=== PATIENT | male | born 1950 | race Caucasian/White ===

== ENCOUNTER 2018-11-14 10:31 | Observation (INO) | payer OTHER, MEDICARE ==
[~2018-11-14] VITALS: Ht 175.3 cm; Wt 89.1 kg
[2018-11-14] MEDS ORDERED: LISI40TA PO (10:49)
[2018-11-14] MEDS ORDERED: METH75TA PO (10:49)
[2018-11-14] MEDS ORDERED: VERA120T2 PO (10:49)
[2018-11-14] MEDS ORDERED: ALLO10TA PO (10:49)
[2018-11-14] MEDS ORDERED: HYDR12.55 PO (10:49)
[2018-11-14] MEDS ORDERED: DIPH25CA PO (10:49)
[2018-11-14] MEDS ORDERED: DOXA2TAB3 PO (10:49)
[2018-11-14] MEDS ORDERED: PANT40TA3 PO (10:49)
[2018-11-14] MEDS ORDERED: CITA10TA5 PO (10:49)
[2018-11-14] MEDS ORDERED: POTA8CAP4 PO (10:49)
[2018-11-14] MEDS ORDERED: ADACEL/BOOSTRIX VACCINE (DIPHTH/PERTUSS/ACELL/TETANUS)0.5ML SYR (90715) IM ONE (11:15)
--- NOTE | 2018-11-14 11:36 | REP ---
CT Head without contrast HISTORY: Injury COMPARISON: None Areas of decreased attenuation are present in the periventricular white matter. This represents small-vessel ischemic disease. There is no intraparenchymal hemorrhage, acute infarct, mass or midline shift. The ventricular system and cortical sulci are dilated consistent with minimal volume loss. There is no extra cerebral collection. There is no fracture. The visualized sinuses are clear. IMPRESSION: 1. Small vessel ischemic disease. 2. Minimal volume loss. Electronically Signed by Sanya Juarez MD 11/14/2018 11:27 A
--- NOTE | 2018-11-14 11:40 | REP ---
CT cervical spine without contrast HISTORY: Injury COMPARISON: None There is no acute fracture or subluxation. Disc bulges are present at the C3-4 through C5-6 levels. A disc bulge with associated osteophyte formation is present at the C6-7 level. There is minimal narrowing of the spinal canal. Uncinate process and/or facet hypertrophy are present at the C3-4 through C7-T1 levels. These findings produce minimal to moderate narrowing of the neural foramina. The C4-5 through C6-7 intervertebral discs are decreased in height consistent with disc degeneration. IMPRESSION: 1. There is no acute fracture or subluxation. 2. There is cervical spondylosis at the C3-4 through C7-T1 levels. Electronically Signed by Sanya Juarez MD 11/14/2018 11:31 A
[2018-11-14 12:00] LABS: BASO % 0.3 % (0.0-1.0); EOS % 0.4 % (0.0-3.0); HEMATOCRIT 37.1 % (42.0-52.0); HEMOGLOBIN 12.6 g/dl (13.5-17.5); LYMPH # 0.8 10^3/uL (1.5-4.5); LYMPH % 11.3 % (24.0-44.0); MEAN CORPUSCULAR HEMOGLOBIN 33.9 pg (27.0-33.0); MEAN CORPUSCULAR VOLUME 99.7 fl (80.0-96.0); MONO # 0.4 10^3/uL (0.0-0.8); MONO % 6.4 % (0.0-5.0); NEUTROPHILS # 5.6 10^3/uL (1.8-7.7); PLATELET COUNT, AUTOMATED 161 10^3/uL (150-450); RED BLOOD COUNT 3.72 10^6/uL (4.30-6.10); WHITE BLOOD COUNT 6.9 10^3/uL (4.0-10.0)
--- NOTE | 2018-11-14 12:04 | REP ---
CHEST, SINGLE VIEW: Single view of the chest is performed. There is no acute infiltrate or pulmonary edema. There is mild left ventricular prominence. The mediastinal silhouette is unremarkable. IMPRESSION: No acute infiltrate. Electronically Signed by Gustavo Turk MD 11/15/2018 11:56 A
[2018-11-14] MEDS ORDERED: ACETAMINOPHEN 325 MG TAB PO ONE (12:15)
--- NOTE | 2018-11-14 12:24 | REP ---
MAXILLOFACIAL CT WITHOUT CONTRAST: HISTORY: Injury. Minimal mucosal thickening is present in the left frontal sinus. The remaining sinuses are clear. The ostiomeatal units are patent. The middle and inferior nasal turbinates are partially paradoxical. There is minimal deviation of the nasal septum to the left. A spur is present arising from the left side of the nasal septum. The cribriform plate, medial valero of the orbits and optic canals are intact. The carotid canals perform a segment of the posterolateral valero of the sphenoid sinus. There is an old fracture of the nasal bone. IMPRESSION: Sinus mucosal thickening as described above. Electronically Signed by Sanya Juarez MD 11/14/2018 12:27 P
[2018-11-14 12:25] LABS: ALBUMIN 3.6 GM/DL (3.2-5.2); ALT/SGPT 43 U/L (12-78); BILIRUBIN,DIRECT 0.1 MG/DL (0.0-0.2); BILIRUBIN,TOTAL 0.4 MG/DL (0.2-1.0); BLOOD UREA NITROGEN 14 MG/DL (7-18); CALCIUM LEVEL 8.9 MG/DL (8.8-10.2); CARBON DIOXIDE LEVEL 26 MEQ/L (21-32); CHLORIDE LEVEL 102 MEQ/L (98-107); CPK CREATINE PHOSPHOKINASE 94 U/L (39-308); CREATININE FOR GFR 0.83 MG/DL (0.70-1.30); GLOMERULAR FILTRATION RATE > 60.0 (>49); GLUCOSE, FASTING 105 MG/DL (70-100); LIPASE 173 U/L (73-393); POTASSIUM SERUM 4.5 MEQ/L (3.5-5.1); SODIUM LEVEL 135 MEQ/L (136-145); TOTAL PROTEIN 7.4 GM/DL (6.4-8.2); TROPONIN I < 0.02 NG/ML (< 0.10)
[2018-11-14] MEDS ORDERED: NS 1,000 ML IV ONE (12:45)
[2018-11-14] MEDS ORDERED: POTA10TA67 PO (13:08)
[2018-11-14] MEDS ORDERED: CITA40TA4 PO (13:08)
[2018-11-14] MEDS ORDERED: VERA240C3 PO (13:08)
[2018-11-14] MEDS ORDERED: DYAZ37.5 PO (13:08)
[2018-11-14] MEDS ORDERED: ZYLO300T6 PO (13:08)
[2018-11-14] MEDS ORDERED: DOXA1TAB42 PO (13:08)
[2018-11-14] MEDS ORDERED: VENTAER INH (13:08)
[2018-11-14] MEDS ORDERED: CRES40TA PO (13:08)
[2018-11-14] MEDS ORDERED: IPRATROPIUM 0.5MG/ALBUTEROL 2.5MG INH SOL UD 3ML (DUONEB)(J7620) NEB PRN (13:45)
[2018-11-14] MEDS: hydrALAZINE INJ 20 MG/ML VIAL IV SCH ×3 (14:19→22:22)
[2018-11-14] MEDS ORDERED: LORazepam 2 MG/ML VIAL (J2060) IV PRN (14:30)
[2018-11-14] MEDS: OXAZEPAM 15 MG CAP PO SCH ×2 (14:58→21:10)
--- NOTE | 2018-11-14 15:18 | ECGEPIP ---
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
[2018-11-14 16:45] VITALS: BP 203/95
[2018-11-14 16:47] VITALS: BP 189/86
[2018-11-14 17:00] VITALS: BP 189/86
[2018-11-14 17:04] VITALS: BP 160/68
[2018-11-14] MEDS: POTASSIUM CHLORIDE 10 MEQ SR TABLET PO SCH ×2 (17:11→21:10)
[2018-11-14] MEDS: LISINOPRIL 40 MG TAB PO SCH ×2 (17:12→21:13)
[2018-11-14] MEDS: ACETAMINOPHEN TAB 650MG DOSE (2X325MG) PO PRN ×2 (17:12→22:22)
--- NOTE | 2018-11-14 17:22 | HPEPDOC ---
General Date of Admission Nov 14, 2018 at 13:39 Date of Service: Nov 14, 2018 Chief Complaint The patient is a 68-year-old male admitted with a reason for visit of Syncope. History of Present Illness 68-year-old male with past medical history of hypertension, GERD, dyslipidemia, gout, and alcohol abuse presented to the ER with a chief complaint of a episode of fall. The patient states that he was walking from his car to the [place] clinic when he fell forward in the office. He states that he felt lightheaded and dizzy and fell forward onto his face and left side. During this time, the patient denies any complaints of chest pain, palpitations, shortness of breath, abdominal pain, nausea/vomiting/diarrhea, or any shaking of the limbs, tongue biting, or loss of consciousness. In the ER, the patient initially denied any history of alcohol abuse. However, the patient's son did call the ER and mention that the patient drinks 18 cans of [place] Light daily. An EKG revealed sinus bradycardia with a heart rate in the 50s- 60s. Imaging did not reveal any acute fractures. The patient will be admitted to the hospitalist service for further evaluation and management. Home Medications Scheduled Allopurinol (Zyloprim) 300 Mg Tablet, 300 MG PO QHS, (Reported) Citalopram Hydrobromide (Citalopram HBr) 40 Mg Tablet, 20 MG PO QHS, (Reported) Doxazosin Mesylate (Doxazosin Mesylate) 1 Mg Tablet, 3 MG PO QHS, (Reported) Lisinopril (Lisinopril) 40 Mg Tablet, 40 MG PO BID, (Reported) Pantoprazole Sodium (Pantoprazole Sodium) 40 Mg Tablet.dr, 40 MG PO QHS, (Reported) Potassium Chloride (Potassium Chloride) 10 Meq Tab.er.prt, 10 MEQ PO TID, (Reported) Rosuvastatin Calcium (Crestor) 40 Mg Tablet, 40 MG PO QHS, (Reported) Triamterene/Hydrochlorothiazid (Dyazide 37.5-25 Capsule) 1 Each Capsule, 1 CAP PO DAILY, (Reported) Verapamil HCl (Verapamil Sr) 240 Mg Cap24h.pel, 240 MG PO QHS, (Reported) Scheduled PRN Albuterol Sulfate (Ventolin Hfa) 18 Gm Hfa.aer.ad, 2 PUFF INH Q4H PRN for SHORTNESS OF BREATH, (Reported) Allergies Coded Allergies: No Known Allergies (Unverified , 11/14/18) Past Medical History Medical History As noted in HPI. Social History * Smoker: current smoker (patient admits to smoking 1 pack per day for the last 45+ years.) Alcohol: other (Patient initially stated that he only drinks 1 beer on occasion. However, the patient's son called the ER and confirmed that he drinks 18 beers of budlight daily after the patient's had ) Drugs: denies Review of Systems Other systems 10 point review of systems negative unless otherwise specified in HPI. Physical Examination General Exam: Positive: Alert, Cooperative, No Acute Distress ENT Exam: Positive: Mucous membr. moist/pink, Other ENT (some bruising noted over the right side of the nasal ridge) Neck Exam: Negative: JVD Chest Exam: Positive: Clear to auscultation, Normal air movement Heart Exam: Positive: Bradycardic Telemetry: Positive: Sinus, Bradycardia Abdomen Exam: Positive: Soft; Negative: Tenderness Extremity Exam: Negative: Tenderness, Swelling Psych Exam: Positive: Oriented x 3 Vital Signs Vital Signs Date Time Temp Pulse Resp B/P (MAP) Pulse Ox O2 Delivery O2 Flow Rate FiO2 11/14/18 17:04 73 160/68 (98) 97 11/14/18 16:47 16 11/14/18 16:45 98.4 11/14/18 16:17 Room Air Laboratory Data Labs 24H Laboratory Tests 2 11/14/18 11:05: Immature Granulocyte % (Auto) 0.6, White Blood Count 6.9, Red Blood Count 3.72L, Hemoglobin 12.6L, Hematocrit 37.1L, Mean Corpuscular Volume 99.7H, Mean Corpuscular Hemoglobin 33.9H, Mean Corpuscular Hemoglobin Concent 34.0, Red Cell Distribution Width 13.8, Platelet Count 161, Neutrophils (%) (Auto) 81.0H, Lymphocytes (%) (Auto) 11.3L, Monocytes (%) (Auto) 6.4H, Eosinophils (%) (Auto) 0.4, Basophils (%) (Auto) 0.3, Neutrophils # (Auto) 5.6, Lymphocytes # (Auto) 0.8L, Monocytes # (Auto) 0.4, Eosinophils # (Auto) 0.0, Basophils # (Auto) 0.0, Nucleated Red Blood Cells % (auto) 0.0, Anion Gap 7L, Glomerular Filtration Rate > 60.0, Calcium Level 8.9, Aspartate Amino Transf (AST/SGOT) 37, Alanine Aminotransferase (ALT/SGPT) 43, Alkaline Phosphatase 116, Total Bilirubin 0.4, Direct Bilirubin 0.1, Total Creatine Kinase 94, Creatine Kinase MB 3.0, Creatine Kinase MB Relative Index 3.40, Troponin I < 0.02, Total Protein 7.4, Albumin 3.6, Albumin/Globulin Ratio 0.95L, Lipase 173 11/14/18 14:31: Ethyl Alcohol Level < 0.003 CBC/BMP Laboratory Tests 11/14/18 11:05 Red Blood Count 3.72 L, Mean Corpuscular Volume 99.7 H, Mean Corpuscular Hemoglobin 33.9 H, Mean Corpuscular Hemoglobin Concent 34.0, Red Cell Distribution Width 13.8, Neutrophils (%) (Auto) 81.0 H, Lymphocytes (%) (Auto) 11.3 L, Monocytes (%) (Auto) 6.4 H, Eosinophils (%) (Auto) 0.4, Basophils (%) (Auto) 0.3, Neutrophils # (Auto) 5.6, Lymphocytes # (Auto) 0.8 L, Monocytes # (Auto) 0.4, Eosinophils # (Auto) 0.0, Basophils # (Auto) 0.0 Plan / VTE VTE Prophylaxis Ordered?: Yes Plan Plan Fall possibly Mechanical from Alcohol Abuse, r/o Cardiac Etiology Imaging with no acute findings EKG noted to be in Sinus Bradycardia, will hold verapamil Orthostatics negative 2D ECHO ordered, Trend Trops We will monitor on Telemetry Accelerated Hypertension Cont Meds as ordered, Hydralazine IV prn ordered for additional control Will hold Doxazosin as this can cause dizziness/lightheadedness and was recently added to the patient's regimen Alcohol Abuse Patient states last drink was yesterday evening, EtOH level within normal limits. Patient noted to be having symptoms of withdrawal in the ER. Will place on CIWA Serax q6h, Ativan prn ordered Gout Cont Allopurinol GERD Cont Protonix Dyslipidemia Cont Statin Anxiety/Depression Cont Celexa DVT Prophylaxis SCDs/BRI Aldana MD Nov 14, 2018 17:22
[2018-11-14 19:22] LABS: CPK CREATINE PHOSPHOKINASE 100 U/L (39-308); TROPONIN I < 0.02 NG/ML (< 0.10)
[2018-11-14 20:00] VITALS: BP_SYST 172; BP_SYST 189; BP_DIAS 6; BP_DIAS 80
[2018-11-14] MEDS: ALLOPURINOL 300 MG TAB PO SCH (21:09)
[2018-11-14] MEDS: PANTOPRAZOLE 40MG TAB (PROTONIX) PO SCH (21:09)
[2018-11-14] MEDS: NICOTINE 7 MG/24 HR TRANSDERMAL TD SCH (21:09)
[2018-11-14] MEDS: CitaloPRAM (CeleXA) 20 MG TAB PO SCH (21:10)
[2018-11-14] MEDS: ROSUVASTATIN 10 MG TAB (CRESTOR) PO SCH (21:10)
[2018-11-15] VITALS (12 sets, daily range): BP systolic 137–178; BP diastolic 60–98
[2018-11-15] MEDS: ACETAMINOPHEN TAB 650MG DOSE (2X325MG) PO PRN ×4 (02:09→22:19)
[2018-11-15] MEDS: hydrALAZINE INJ 20 MG/ML VIAL IV SCH ×2 (02:47→06:09)
[2018-11-15 02:56] LABS: HEMATOCRIT 35.4 % (42.0-52.0); HEMOGLOBIN 11.8 g/dl (13.5-17.5); MEAN CORPUSCULAR HEMOGLOBIN 32.4 pg (27.0-33.0); MEAN CORPUSCULAR HGB CONC 33.3 g/dl (32.0-36.5); MEAN CORPUSCULAR VOLUME 97.3 fl (80.0-96.0); PLATELET COUNT, AUTOMATED 148 10^3/uL (150-450); RED BLOOD COUNT 3.64 10^6/uL (4.30-6.10); WHITE BLOOD COUNT 5.2 10^3/uL (4.0-10.0)
[2018-11-15 03:17] LABS: ALT/SGPT 36 U/L (12-78); BILIRUBIN,TOTAL 0.2 MG/DL (0.2-1.0); BLOOD UREA NITROGEN 11 MG/DL (7-18); CALCIUM LEVEL 8.4 MG/DL (8.8-10.2); CARBON DIOXIDE LEVEL 27 MEQ/L (21-32); CHLORIDE LEVEL 107 MEQ/L (98-107); CPK CREATINE PHOSPHOKINASE 88 U/L (39-308); CREATININE FOR GFR 0.73 MG/DL (0.70-1.30); GLOMERULAR FILTRATION RATE > 60.0 (>49); GLUCOSE, FASTING 94 MG/DL (70-100); MAGNESIUM LEVEL 2.1 MG/DL (1.8-2.4); MB/CK RELATIVE INDEX 3.18 (< OR =4); POTASSIUM SERUM 3.8 MEQ/L (3.5-5.1); SODIUM LEVEL 140 MEQ/L (136-145); TOTAL PROTEIN 7.1 GM/DL (6.4-8.2); TROPONIN I < 0.02 NG/ML (< 0.10)
[2018-11-15] MEDS ORDERED: KETOROLAC 30 MG/ML VIAL (J1885) IV ONE ×2 (04:15→18:30)
[2018-11-15] MEDS: OXAZEPAM 15 MG CAP PO SCH (06:07)
[2018-11-15] MEDS: DYAZIDE 37.5/25 CAP (TRIAM/HCTZ) PO SCH (08:38)
[2018-11-15] MEDS: LISINOPRIL 40 MG TAB PO SCH ×2 (08:38→21:03)
[2018-11-15] MEDS: NICOTINE 7 MG/24 HR TRANSDERMAL TD SCH (08:39)
[2018-11-15] MEDS: POTASSIUM CHLORIDE 10 MEQ SR TABLET PO SCH ×3 (08:39→21:03)
--- NOTE | 2018-11-15 09:51 | IPNPDOC ---
Subjective Date Seen The patient was seen on 11/15/18. Subjective Chief Complaint/HPI Patient seen and examined at the bedside. No acute overnight events noted. Patient denies any more episodes of lightheadedness/dizziness. Objective Physical Examination General Exam: Positive: Alert, Cooperative, No Acute Distress ENT Exam: Positive: Mucous membr. moist/pink, Other ENT (some bruising noted over the right side of the nasal ridge) Neck Exam: Negative: JVD Chest Exam: Positive: Clear to auscultation, Normal air movement Heart Exam: Positive: Rate Normal, Normal S1, Normal S2 Telemetry: Positive: Sinus Abdomen Exam: Positive: Soft; Negative: Tenderness Extremity Exam: Negative: Tenderness, Swelling Psych Exam: Positive: Oriented x 3 Assessment /Plan Plan/VTE VTE Prophylaxis Ordered?: Yes Plan Fall possibly Mechanical from Alcohol Abuse, r/o Cardiac Etiology Imaging with no acute findings Orthostatics negative Trops negative 2D ECHO pending No acute overnight events noted on Telemetry--Will cont to monitor Accelerated Hypertension Cont Meds as ordered, Hydralazine PRN ordered Will hold Doxazosin as this can cause dizziness/lightheadedness and was recently added to the patient's regimen Hx of Alcohol Abuse CIWA protocol ordered Serax q6h prn ordered Gout Cont Allopurinol GERD Cont Protonix Dyslipidemia Cont Statin Anxiety/Depression Cont Celexa DVT Prophylaxis SCDs/TEDs Dispo--pending 2D ECHO, continued clinical improvement. Monitor on Telemetry. D/C in 24hrs pending no acute findings, stabilization of blood pressure. [facility]/I&O Vital Signs Date Time Temp Pulse Resp B/P (MAP) Pulse Ox O2 Delivery O2 Flow Rate FiO2 11/15/18 06:09 188/96 11/15/18 04:00 97.6 88 18 96 11/14/18 16:17 Room Air I&O- Last 24 Hours up to 6 AM 11/15/18 05:59 Intake Total 940 ml Output Total 1950 ml Balance -1010 ml Laboratory Data 24H LABS Laboratory Tests 2 11/14/18 11:05: Immature Granulocyte % (Auto) 0.6, White Blood Count 6.9, Red Blood Count 3.72L, Hemoglobin 12.6L, Hematocrit 37.1L, Mean Corpuscular Volume 99.7H, Mean Corpus cular Hemoglobin 33.9H, Mean Corpuscular Hemoglobin Concent 34.0, Red Cell Distribution Width 13.8, Platelet Count 161, Neutrophils (%) (Auto) 81.0H, Lymphocytes (%) (Auto) 11.3L, Monocytes (%) (Auto) 6.4H, Eosinophils (%) (Auto) 0.4, Basophils (%) (Auto) 0.3, Neutrophils # (Auto) 5.6, Lymphocytes # (Auto) 0.8L, Monocytes # (Auto) 0.4, Eosinophils # (Auto) 0.0, Basophils # (Auto) 0.0, Nucleated Red Blood Cells % (auto) 0.0, Anion Gap 7L, Glomerular Filtration Rate > 60.0, Calcium Level 8.9, Aspartate Amino Transf (AST/SGOT) 37, Alanine Aminotransferase (ALT/SGPT) 43, Alkaline Phosphatase 116, Total Bilirubin 0.4, Direct Bilirubin 0.1, Total Creatine Kinase 94, Creatine Kinase MB 3.0, Creatine Kinase MB Relative Index 3.40, Troponin I < 0.02, Total Protein 7.4, Albumin 3.6, Albumin/Globulin Ratio 0.95L, Lipase 173 11/14/18 14:31: Ethyl Alcohol Level < 0.003 11/14/18 18:53: Total Creatine Kinase 100, Creatine Kinase MB 3.0, Creatine Kinase MB Relative Index 3.40, Troponin I < 0.02 11/15/18 02:49: Nucleated Red Blood Cells % (auto) 0.0, Anion Gap 6L, Glomerular Filtration Rate > 60.0, Calcium Level 8.4L, Aspartate Amino Transf (AST/SGOT) 32, Alanine Aminotransferase (ALT/SGPT) 36, Alkaline Phosphatase 109, Total Bilirubin 0.2, Total Creatine Kinase 88, Creatine Kinase MB 3.0, Creatine Kinase MB Relative Index 3.18, Troponin I < 0.02, Total Protein 7.1, Albumin 3.0L, Albumin/Globulin Ratio 0.73L, Blood Urea Nitrogen 11, Creatinine 0.73, Sodium Level 140, Potassium Level 3.8, Chloride Level 107, Carbon Dioxide Level 27, Magnesium Level 2.1 CBC/BMP Laboratory Tests 11/14/18 11:05 Red Blood Count 3.72 L, Mean Corpuscular Volume 99.7 H, Mean Corpuscular Hemoglobin 33.9 H, Mean Corpuscular Hemoglobin Concent 34.0, Red Cell Distribution Width 13.8, Neutrophils (%) (Auto) 81.0 H, Lymphocytes (%) (Auto) 11.3 L, Monocytes (%) (Auto) 6.4 H, Eosinophils (%) (Auto) 0.4, Basophils (%) (Auto) 0.3, Neutrophils # (Auto) 5.6, Lymphocytes # (Auto) 0.8 L, Monocytes # (Auto) 0.4, Eosinophils # (Auto) 0.0, Basophils # (Auto) 0.0 11/15/18 02:49 Red Blood Count 3.64 L, Mean Corpuscular Volume 97.3 H, Mean Corpuscular Hemoglobin 32.4, Mean Corpuscular Hemoglobin Concent 33.3, Red Cell Distribution Width 13.9, Calcium Level 8.4 L, Aspartate Amino Transf (AST/SGOT) 32, Alanine Aminotransferase (ALT/SGPT) 36, Total Creatine Kinase 88, Alkaline Phosphatase 109, Total Bilirubin 0.2, Total Protein 7.1, Albumin 3.0 L BRI VALLE MD Nov 15, 2018 09:51
[2018-11-15] MEDS ORDERED: OXAZEPAM 15 MG CAP PO PRN (10:00)
[2018-11-15] MEDS: **hydrALAZINE** 10 MG TAB PO SCH ×3 (12:17→23:45)
[2018-11-15] MEDS ORDERED: SLF 3 ML SYR IV PRN (14:45)
[2018-11-15] MEDS ORDERED: VERAPAMIL 120 MG SR TAB PO SCH (21:00)
[2018-11-15] MEDS: PANTOPRAZOLE 40MG TAB (PROTONIX) PO SCH (21:02)
[2018-11-15] MEDS: ROSUVASTATIN 10 MG TAB (CRESTOR) PO SCH (21:03)
[2018-11-15] MEDS: ALLOPURINOL 300 MG TAB PO SCH (21:03)
[2018-11-15] MEDS: CitaloPRAM (CeleXA) 20 MG TAB PO SCH (21:04)
[2018-11-15] MEDS: SLF 3 ML SYR IV SCH (21:06)
--- NOTE | 2018-11-15 23:15 | ECHO ---
DATE OF PROCEDURE: 11/15/2018 AGE: 68 GENDER: Male HEIGHT: 69 inches WEIGHT: 185 pounds BODY SURFACE AREA: 2.0 m2 PATIENT LOCATION: Inpatient, ICU, room 3208 REFERRING PHYSICIAN: Jeramy Kennedy MD INDICATION: Syncope. 2-D MEASUREMENTS: RV: 4.4 cm LV: 4.2 cm Septum: 1.4 cm Posterior wall: 1.4 cm Aortic root: 3.7 cm LA: 4.2 cm LVEF: 85% DOPPLER MEASUREMENTS: AV: 2.7 m/s LVOT: 1.86 m/s LVOT diameter: 2.0 cm Mean AV gradient: 15 mmHg Dimensionless index: 0.65 MV-E: 57, A: 115, EA ratio: 0.5 E prime: 5, A prime: 12, E/E prime ratio: 11.4 PCWP: 12.8 mmHg PV: 1.3 m/s Pulmonary artery acceleration time: 100 ms PASP: 37 mmHg IVC: 1.9 cm COMMENTS Normal sinus rhythm with right bundle branch block. Technically challenging study in light of the patient's body habitus, but diagnostically useful information was still obtained. M-mode and two-dimensional echocardiography was performed with pulsed, continuous wave, color flow and tissue Doppler studies. Moderate concentric left ventricle hypertrophy with hyperkinetic wall motion. Mildly dilated left atrium with impairment of LV diastolic function, left atrial pressure upper limits of normal at this time. Mildly dilated right heart chambers with normal wall motion and Doppler evidence of at least mild pulmonary hypertension. Normal IVC size with slightly reduced respiratory collapse suggestive of a pulmonary arterial pressure upper limits of normal. Moderate aortic valvular sclerosis without stenosis (increased peak systolic velocity or reflection of hyperdynamic flow not LV outflow tract obstruction). Trace aortic insufficiency. Normal aortic root size. Slight thickening of the mitral annulus, but no functional valvular abnormality. Normal appearing tricuspid valve with only trace to mild insufficiency. No apparent intracardiac mass or pericardial effusion.
[2018-11-16 01:00] VITALS: BP 140/76
[2018-11-16 05:58] VITALS: BP 170/98
[2018-11-16] MEDS: **hydrALAZINE** 10 MG TAB PO SCH (05:58)
[2018-11-16] MEDS: SLF 3 ML SYR IV SCH (05:58)
[2018-11-16 06:00] VITALS: BP 170/98
[2018-11-16] MEDS: ACETAMINOPHEN TAB 650MG DOSE (2X325MG) PO PRN (06:35)
[2018-11-16 06:50] VITALS: BP 160/82
[2018-11-16] MEDS: POTASSIUM CHLORIDE 10 MEQ SR TABLET PO SCH (08:21)
[2018-11-16] MEDS: LISINOPRIL 40 MG TAB PO SCH (08:21)
[2018-11-16] MEDS: DYAZIDE 37.5/25 CAP (TRIAM/HCTZ) PO SCH (08:21)
[2018-11-16] MEDS: NICOTINE 7 MG/24 HR TRANSDERMAL TD SCH (08:22)
--- NOTE | 2018-11-21 05:08 | DS.PDOC ---
Discharge Summary General Date of Admission Nov 14, 2018 at 13:39 Date of Discharge 11/16/18 Discharge Summary PROCEDURES PERFORMED DURING STAY: None ADMITTING DIAGNOSES: 1. S/P Fall 2. Syncope 3. ETOH Withdrawal Syndrome 4. Accelerated HTN DISCHARGE DIAGNOSES: Same COMPLICATIONS/CHIEF COMPLAINT: Syncope, Fall HISTORY OF PRESENT ILLNESS: As recorded in HPI " 68-year-old male with past medical history of hypertension, GERD, dyslipidemia, gout, and alcohol abuse presented to the ER with a chief complaint of a episode of fall. The patient states that he was walking from his car to the [place] clinic when he fell forward in the office. He states that he felt lightheaded and dizzy and fell forward onto his face and left side. During this time, the patient denies any complaints of chest pain, palpitations, shortness of breath, abdominal pain, nausea/vomiting/diarrhea, or any shaking of the limbs, tongue biting, or loss of consciousness. In the ER, the patient initially denied any history of alcohol abuse. However, the patient's son did call the ER and mention that the patient drinks 18 cans of [place] Light daily. An EKG revealed sinus bradycardia with a heart rate in the 50s- 60s. Imaging did not reveal any acute fractures. The patient will be admitted to the hospitalist service for further evaluation and management. " HOSPITAL COURSE: pt was admitted to telemetry unit with cont. telemonitoring, no events noted on telemetry. CIWA protocol was initiated in view of heavy ETOH use reported by pt sun. Routine blood w/u and imaging did not reveal any abnormality. 2DECHO completed with unremarkable result except LV diastolic dysfunction. Pt is now clinically optimized to dc home. DISCHARGE MEDICATIONS: Please see below. ALLERGIES: Please see below. PHYSICAL EXAMINATION ON DISCHARGE: VITAL SIGNS: Please see below. General Exam: Positive: Alert, Cooperative, No Acute Distress ENT Exam: Positive: Mucous membr. moist/pink, Other ENT (some bruising noted over the right side of the nasal ridge) Neck Exam: Negative: JVD Chest Exam: Positive: Clear to auscultation, Normal air movement Heart Exam: Positive: Bradycardic Telemetry: Positive: Sinus, Bradycardia Abdomen Exam: Positive: Soft; Negative: Tenderness Extremity Exam: Negative: Tenderness, Swelling Psych Exam: Positive: Oriented x 3 LABORATORY DATA: Please see below. IMAGIN11/14/[address] unremarkable Cervical Spine CT no fracture no subluxation Maxillofacial CT sinus thickenning 11/15/18 2D Echo Result " Normal sinus rhythm with right bundle branch block. Technically challenging study in light of the patient's body habitus, but diagnostically useful information was still obtained. M-mode and two-dimensional echocardiography was performed with pulsed, continuous wave, color flow and tissue Doppler studies. Moderate concentric left ventricle hypertrophy with hyperkinetic wall motion. Mildly dilated left atrium with impairment of LV diastolic function, left atrial pressure upper limits of normal at this time. Mildly dilated right heart chambers with normal wall motion and Doppler evidence of at least mild pulmonary hypertension. Normal IVC size with slightly reduced respiratory collapse suggestive of a pulmonary arterial pressure upper limits of normal. Moderate aortic valvular sclerosis without stenosis (increased peak systolic velocity or reflection of hyperdynamic flow not LV outflow tract obstruction). Trace aortic insufficiency. Normal aortic root size. Slight thickening of the mitral annulus, but no functional valvular abnormality. Normal appearing tricuspid valve with only trace to mild insufficiency. No apparent intracardiac mass or pericardial effusion." PROGNOSIS: Guarded ACTIVITY: As tolerated DIET: 2Gr NA DISCHARGE PLAN: DISPOSITION: Home, Self-Care. ITEMS TO FOLLOWUP ON ON OUTPATIENT: PCP in 2 weeks ETOH Counseling DISCHARGE CONDITION: Stable TIME SPENT ON DISCHARGE: Greater than 20 minutes. Vital Signs/I&Os Vital Signs Date Time Temp Pulse Resp B/P (MAP) Pulse Ox O2 Delivery O2 Flow Rate FiO2 11/16/18 06:50 68 160/82 (108) 11/16/18 06:00 98.9 20 97 Discharge Medications Scheduled Allopurinol (Zyloprim) 300 Mg Tablet, 300 MG PO QHS, (Reported) Citalopram Hydrobromide (Citalopram HBr) 40 Mg Tablet, 20 MG PO QHS, (Reported) Doxazosin Mesylate (Doxazosin Mesylate) 1 Mg Tablet, 3 MG PO QHS, (Reported) Lisinopril (Lisinopril) 40 Mg Tablet, 40 MG PO BID, (Reported) Rosuvastatin Calcium (Crestor) 40 Mg Tablet, 40 MG PO QHS, (Reported) Triamterene/Hydrochlorothiazid (Dyazide 37.5-25 Capsule) 1 Each Capsule, 1 CAP PO DAILY, (Reported) Verapamil HCl (Verapamil Sr) 240 Mg Cap24h.pel, 240 MG PO QHS, (Reported) Scheduled PRN Albuterol Sulfate (Ventolin Hfa) 18 Gm Hfa.aer.ad, 2 PUFF INH Q4H PRN for SHORTNESS OF BREATH, (Reported) Allergies Coded Allergies: No Known Allergies (Unverified , 11/14/18) LUTHER WAN MD Nov 21, 2018 05:08
== END 2018-11-16 11:45 | disposition home or self-care (01) ==
LOC: M ED 10:31 → M ED INP 13:39 → M ICU 16:30 → M MSPAV 11-15 14:57
PROVIDERS: ADMIT Internal Medicine; ATTEND Hospitalist
DX: R55 Syncope and collapse (principal); S00.83XA Contusion of other part of head, initial encounter; W19.XXXA Unspecified fall, initial encounter; Y92.531 Health care provider office as the place of occurrence of the external cause; F10.230 Alcohol dependence with withdrawal, uncomplicated; I11.0 Hypertensive heart disease with heart failure; I50.1 Left ventricular failure, unspecified; R00.1 Bradycardia, unspecified; K21.9 Gastro-esophageal reflux disease without esophagitis; E78.5 Hyperlipidemia, unspecified; M10.9 Gout, unspecified; F41.9 Anxiety disorder, unspecified; F32.9 Major depressive disorder, single episode, unspecified; F17.210 Nicotine dependence, cigarettes, uncomplicated; Z79.899 Other long term (current) drug therapy
CPT/HCPCS: 36415; 70450; 70486; 71045; 72125; 80048; 80053; 80076; 82550; 82553; 83690; 83735; 84484; 85025; 85027; 90471; 90715; 93005; 93041; 93306; 94760; 96374; 96375; 96376; 97161; 99285; G0378; G0480; J1885

== ENCOUNTER → 2021-02-27 | Outpatient (REF) | payer MEDICARE, OTHER ==
[~2021-02-27] MED LIST: ALLO10TA PO; ALLO300T2 PO; AZO-95TA3 PO; BACT800T5 PO; CELE40TA PO; CITA10TA7 PO; CITA40TA7 PO; CRES40TA PO; DIPH25CA32 PO; DOXA1TAB42 PO; DOXA2TAB3 PO; DYAZ37.5 PO; HYDR-3713 PO; HYDR12.55 PO; LISI40TA4 PO; METH-1165 PO; OXYB5TAB10 PO; PANT40TA29 PO; POTA10TA67 PO; POTA8CAP10 PO; PYRI1TAB5 PO; TRIA37.53 PO; VENTAER INH; VERA120T9 PO; VERA240C3 PO; ZYLO100T2 PO; ZYLO300T6 PO
[2021-02-27 13:58] LABS: APPEARANCE, URINE HAZY (CLEAR); BACTERIA, URINE AUTO 1+ (NEGATIVE); BILIRUBIN, URINE AUTO NEGATIVE (NEGATIVE); BLOOD, URINE BLOOD 1+ (NEGATIVE); COLOR, URINE YELLOW (YELLOW); GLUCOSE, URINE (UA) AUTO NEGATIVE (NEGATIVE); KETONE, URINE AUTO NEGATIVE (NEGATIVE); LEUKOCYTE ESTERASE, URINE AUTO NEGATIVE (NEGATIVE); MUCUS, URINE SMALL (NEGATIVE); NITRITE, URINE AUTO NEGATIVE (NEGATIVE); PROTEIN, URINE AUTO 2+ mg/dL (NEGATIVE); RBC, URINE AUTO 35 /HPF (0-3); SPECIFIC GRAVITY URINE AUTO 1.015 (1.002-1.035); SQUAMOUS EPITHELIAL CELL UR AU 0 /HPF (0-6); WBC, URINE AUTO 8 /HPF (0-3)
== END ==
LOC: M SMT 13:24
PROVIDERS: ATTEND Urology
DX: R31.21 Asymptomatic microscopic hematuria (principal)

== ENCOUNTER → 2021-03-11 | Outpatient (CLI) | payer OTHER ==
[~2021-03-11] MED LIST changes: -ALLO300T2 PO; -AZO-95TA3 PO; -BACT800T5 PO; -CELE40TA PO; +CITA10TA5 PO; -CITA10TA7 PO; +CITA40TA4 PO; -CITA40TA7 PO; -HYDR-3713 PO; -OXYB5TAB10 PO; -PYRI1TAB5 PO; -TRIA37.53 PO; -ZYLO100T2 PO
[2021-03-11 15:49] LABS: ALBUMIN 3.5 GM/DL (3.2-5.2); ALT/SGPT 39 U/L (12-78); BILIRUBIN,TOTAL 0.5 MG/DL (0.2-1.0); BLOOD UREA NITROGEN 14 MG/DL (7-18); CARBON DIOXIDE LEVEL 29 MEQ/L (21-32); CHLORIDE LEVEL 99 MEQ/L (98-107); CREATININE FOR GFR 1.21 MG/DL (0.70-1.30); GLOMERULAR FILTRATION RATE > 60.0 (>42); GLUCOSE, FASTING 109 MG/DL (70-100); POTASSIUM SERUM 4.5 MEQ/L (3.5-5.1); SODIUM LEVEL 138 MEQ/L (136-145); TOTAL PROTEIN 7.3 GM/DL (6.4-8.2)
== END ==
LOC: M PLALAB 13:23
PROVIDERS: ATTEND Urology
DX: R31.21 Asymptomatic microscopic hematuria (principal)

== ENCOUNTER → 2021-03-12 | Outpatient (CLI) | payer OTHER ==
[~2021-03-12] MED LIST changes: +ISOVUE-370 76% 100ML VIAL As Ordered ONE
--- NOTE | 2021-03-13 08:53 | REP ---
INDICATION: MICRO HEMATURIA. COMPARISON: None TECHNIQUE: Axial precontrast, contrast-enhanced and delayed images from the lung bases to the pubic symphysis using 100 cc Isovue 370 intravenous contrast material. Coronal and sagittal reformations obtained. This CT examination was performed using the following dose reduction techniques: Automated exposure control, adjustment of mA and/or kv according to the patient's size, and the use of iterative reconstruction technique. FINDINGS: The kidneys demonstrate relatively symmetric and chronic appearing perinephric stranding along with few predominantly subcentimeter bilateral hypodensities consistent with complex cysts (largest cyst noted along the anterior margin of the left kidney and measures 1.5 cm diameter). No evidence for nephrolithiasis, hydroureteronephrosis or obstructing ureteral calculi. Along the posterior base of the bladder there is a nodular soft tissue irregularity most pronounced adjacent to the right trigone which focally measures 1.4 cm diameter and is suspicious for bladder mass versus irregular prostate. The liver is enlarged and demonstrates a subtle nodular contour along with subtle mesenteric stranding in the right upper quadrant/franky hepatis with few moderately prominent associated lymph nodes and evidence for recanalized umbilical vein most consistent with underlying cirrhosis. No focal hepatic lesion identified. Splenic calcifications suggest prior granulomatous disease. Pancreas, gallbladder, and bilateral adrenal glands are normal. The enteric system is without evidence for obstruction or acute inflammatory process. No free air or free fluid. Normal terminal ileum and appendix are identified in the right lower quadrant. Pelvis demonstrates bladder as described above along with nonspecific appearance of the prostate gland. No ascites. No free air. No retroperitoneal adenopathy. Abdominal aorta and vasculature appear normal. Musculoskeletal structures are intact and without acute osseous abnormality. IMPRESSION: 1. Irregular somewhat nodular soft tissue along the posterior bladder with a focal 1.4 nodular component along the right trigone warrants urological investigation. Kidneys demonstrate chronic appearing changes and few small complex cysts. 2. Findings suggesting cirrhosis with hepatomegaly and right upper quadrant/franky hepatis lymph nodes. <Electronically signed by Ray Andino > 03/13/21 [id number]
== END ==
LOC: M RAD 13:42
PROVIDERS: ATTEND Urology
DX: R31.1 Benign essential microscopic hematuria (principal)
CPT/HCPCS: 74178; Q9967

== ENCOUNTER → 2021-06-18 | Outpatient (CLI) | payer OTHER ==
[~2021-06-18] MED LIST changes: +HYDR-3713 PO; -ISOVUE-370 76% 100ML VIAL As Ordered ONE; +TRIA37.53 PO; +ZYLO100T2 PO
== END ==
LOC: M LABSMTC 11:20
PROVIDERS: ATTEND Anesthesiology
DX: Z20.822 Contact with and (suspected) exposure to COVID-19 (principal)

== ENCOUNTER → 2021-07-02 | Outpatient (CLI) | payer OTHER ==
[~2021-07-02] MED LIST changes: -CITA10TA5 PO; +CITA10TA7 PO; -CITA40TA4 PO; +CITA40TA7 PO
== END ==
LOC: M LABSMTC 09:08
PROVIDERS: ATTEND Anesthesiology
DX: Z01.812 Encounter for preprocedural laboratory examination (principal); Z20.822 Contact with and (suspected) exposure to COVID-19

== ENCOUNTER 2021-07-07 07:49 | Day surgery (SDC) | payer OTHER ==
[~2021-07-07] VITALS: Ht 176.5 cm; Wt 88.9 kg
[~2021-07-07 07:49] MED LIST changes: +CIPROFLOXACIN 400 MG in IV 1 EA IV ONE; +LIDOCAINE 1% MDV 20ML VIAL SQ PRN; +LR 1,000 ML IV ONE
[2021-07-07] MEDS ORDERED: hydrALAZINE 20MG/ML 1ML VIAL (J0360 PER 20MG) As Ordered ONE ×2 (08:41→09:58)
[2021-07-07] MEDS: MIDAZOLAM INJ 2MG/2ML VIAL (J2250 PER 1MG) IV PRN ×2 (08:53→09:13)
[2021-07-07] MEDS ORDERED: MIDAZOLAM INJ 2MG/2ML VIAL (J2250 PER 1MG) As Ordered ONE (09:11)
[2021-07-07] MEDS ORDERED: fentaNYL 100 MCG/2 ML INJECTION (J3010) As Ordered ONE (09:20)
[2021-07-07] MEDS ORDERED: SUGAMMADEX SODIUM 500 MG/5 ML VIAL (BRIDION) As Ordered ONE (09:50)
[2021-07-07] MEDS ORDERED: ACETAMINOPHEN 1000MG 100ML IV BTL (OFIRMEV) (J0131 PER 10MG) As Ordered ONE (09:50)
[2021-07-07] MEDS ORDERED: ONDANSETRON 4MG/2ML VIAL As Ordered ONE (09:58)
[2021-07-07] MEDS ORDERED: LIDOCAINE 2% 100MG/5ML SDV (FOR ANES.) As Ordered ONE (09:58)
[2021-07-07] MEDS ORDERED: ROCURONIUM BROMIDE 50 MG/5 ML VIAL As Ordered ONE (09:58)
[2021-07-07] MEDS ORDERED: dexameTHASONE 4 MG/ML 1ML VIAL (J1100 PER 1MG) As Ordered ONE (09:58)
[2021-07-07] MEDS ORDERED: propofoL 200 MG/20 ML VIAL As Ordered ONE (09:58)
[2021-07-07] MEDS ORDERED: PYRI1TAB5 PO (10:25)
[2021-07-07] MEDS ORDERED: BACT800T5 PO ×2 (10:25→14:07)
[2021-07-07] MEDS ORDERED: HYDR-3713 PO ×2 (10:25→14:07)
[2021-07-07] MEDS ORDERED: OXYB5TAB10 PO (10:25)
[2021-07-07] MEDS ORDERED: oxyCODONE 5MG TAB PO PRN (10:40)
[2021-07-07] MEDS ORDERED: fentaNYL 100 MCG/2 ML INJECTION (J3010) IV PRN (10:40)
[2021-07-07] MEDS ORDERED: LR 1,000 ML IV SCH ×2 (10:40→10:45)
[2021-07-07] MEDS ORDERED: ONDANSETRON 4MG/2ML VIAL IV PRN (10:40)
[2021-07-07] MEDS ORDERED: HYDROMORPHONE HCL 0.5 MG/ 0.5 ML SYRINGE (J1170 PER 1) IV PRN (10:40)
[2021-07-07 11:35] VITALS: BP 110/62
== END 2021-07-07 11:40 | disposition home or self-care (01) ==
LOC: M SDC 07:49
PROVIDERS: ATTEND Urology
DX: C67.9 Malignant neoplasm of bladder, unspecified (principal); I10 Essential (primary) hypertension; I25.10 Atherosclerotic heart disease of native coronary artery without angina pectoris; F17.200 Nicotine dependence, unspecified, uncomplicated; D64.9 Anemia, unspecified; Z79.899 Other long term (current) drug therapy
CPT/HCPCS: 52240; 52332; 88305; C1769; C2617; J0131; J0360; J0744; J1100; J2250; J2405; J3010

== ENCOUNTER 2021-07-14 16:22 | Inpatient (IN) | payer OTHER ==
[~2021-07-14] VITALS: Ht 175.3 cm; Wt 88.9 kg
[~2021-07-14 16:22] MED LIST changes: -ALLO300T2 PO; -AZO-95TA3 PO; -CELE40TA PO
[2021-07-14] MEDS ORDERED: LIDOCAINE 2% 5ML JELLY UROJET TOP ONE (17:15)
[2021-07-14 18:00] LABS: INR 1.05; PROTHROMBIN TIME 14.1 SECONDS (12.7-14.5)
[2021-07-14] MEDS ORDERED: CELE40TA PO (18:04)
[2021-07-14] MEDS ORDERED: AZO-95TA3 PO (18:04)
[2021-07-14] MEDS ORDERED: OXYB5TAB10 PO (18:04)
[2021-07-14] MEDS ORDERED: ALLO300T2 PO (18:04)
[2021-07-14] MEDS ORDERED: BACT800T5 PO (18:04)
[2021-07-14] MEDS ORDERED: HOME MED LIST COMPLETE! XX SCH (18:05)
[2021-07-14] MEDS ORDERED: ALBUTEROL 90 MCG/ACT 8GM HFA INHALER INH PRN (18:25)
[2021-07-14] MEDS ORDERED: oxyBUTYnin 5 MG TAB PO PRN (18:25)
[2021-07-14] MEDS ORDERED: LORazepam 2 MG TAB PO PRN (18:30)
[2021-07-14] MEDS: NS 1,000 ML IV SCH (18:45)
[2021-07-14 19:15] LABS: BILIRUBIN, URINE MANUAL OBSCURED (NEGATIVE); GLUCOSE, URINE (UA) MANUAL NEGATIVE (NEGATIVE); KETONE, URINE MANUAL NEGATIVE (NEGATIVE); UROBILINOGEN, URINE MANUAL OBSCURED mg/dl (NORMAL)
[2021-07-14 19:17] LABS: RSV AMPLIFICATION NEGATIVE (NEGATIVE)
[2021-07-14 19:24] LABS: RBC, URINE TNTC /hpf (0-3); SQUAMOUS EPITHELIAL CELL URINE NONE SEEN /hpf (SMALL AMT)
[2021-07-14 19:25] LABS: BACTERIA, URINE NONE SEEN; HYALINE CAST, URINE NONE SEEN /lpf (0-1)
[2021-07-14 21:09] VITALS: BP 182/88
[2021-07-14] MEDS: THIAMINE 100 MG TAB PO SCH (22:19)
[2021-07-14] MEDS: CitaloPRAM (CeleXA) 20 MG TAB PO SCH (22:19)
[2021-07-14] MEDS: ROSUVASTATIN 10 MG TAB (CRESTOR) PO SCH (22:19)
[2021-07-14 22:39] VITALS: BP 164/88
[2021-07-14 23:09] VITALS: BP 182/88
[2021-07-14] MEDS: NORCO, ANEXSIA 5/325MG TABLET (HYDROcodone/ACETAMINOPHEN) PO PRN (23:09)
[2021-07-14 23:24] VITALS: BP 177/88
[2021-07-15] VITALS (12 sets, daily range): BP systolic 147–176; BP diastolic 73–90
[2021-07-15] MEDS: DOXAZOSIN MESYLATE 1 MG TAB PO SCH ×2 (01:48→20:47)
[2021-07-15] MEDS: VERAPAMIL 120MG SR TAB PO SCH ×2 (01:49→20:48)
[2021-07-15] MEDS: NS 1,000 ML IV SCH ×3 (04:25→20:48)
[2021-07-15 06:56] LABS: HEMATOCRIT 28.5 % (42.0-52.0); HEMOGLOBIN 9.4 g/dl (13.5-17.5); MEAN CORPUSCULAR HEMOGLOBIN 30.5 pg (27.0-33.0); MEAN CORPUSCULAR VOLUME 92.5 fl (80.0-96.0); PLATELET COUNT, AUTOMATED 207 10^3/uL (150-450); RED BLOOD COUNT 3.08 10^6/uL (4.30-6.10); WHITE BLOOD COUNT 7.9 10^3/uL (4.0-10.0)
[2021-07-15 07:39] LABS: ALBUMIN 2.8 GM/DL (3.2-5.2); BILIRUBIN,TOTAL 0.6 MG/DL (0.2-1.0); CALCIUM LEVEL 8.9 MG/DL (8.8-10.2); CREATININE FOR GFR 1.27 MG/DL (0.70-1.30); GLOMERULAR FILTRATION RATE 59.3 (>42); POTASSIUM SERUM 4.3 MEQ/L (3.5-5.1); TOTAL PROTEIN 6.6 GM/DL (6.4-8.2)
[2021-07-15] MEDS: FOLIC ACID 1 MG TAB PO SCH (09:05)
[2021-07-15] MEDS: MULTIVITAMINS/MINERALS THERAP 1 TAB PO SCH (09:05)
[2021-07-15] MEDS: THIAMINE 100 MG TAB PO SCH ×2 (09:05→20:48)
[2021-07-15] MEDS: NORCO, ANEXSIA 5/325MG TABLET (HYDROcodone/ACETAMINOPHEN) PO PRN ×2 (09:08→20:47)
[2021-07-15] MEDS: ROSUVASTATIN 10 MG TAB (CRESTOR) PO SCH (20:46)
[2021-07-15] MEDS: CitaloPRAM (CeleXA) 20 MG TAB PO SCH (20:48)
[2021-07-16] MEDS: NS 1,000 ML IV SCH ×2 (02:54→12:09)
[2021-07-16 06:00] VITALS: BP 130/70
[2021-07-16 06:10] LABS: HEMATOCRIT 28.8 % (42.0-52.0); HEMOGLOBIN 9.3 g/dl (13.5-17.5); MEAN CORPUSCULAR HEMOGLOBIN 30.7 pg (27.0-33.0); MEAN CORPUSCULAR HGB CONC 32.3 g/dl (32.0-36.5); PLATELET COUNT, AUTOMATED 199 10^3/uL (150-450); RED BLOOD COUNT 3.03 10^6/uL (4.30-6.10); WHITE BLOOD COUNT 8.8 10^3/uL (4.0-10.0)
[2021-07-16 06:29] LABS: ALBUMIN 2.8 GM/DL (3.2-5.2); ALT/SGPT 29 U/L (12-78); BILIRUBIN,TOTAL 0.3 MG/DL (0.2-1.0); BLOOD UREA NITROGEN 17 MG/DL (7-18); CALCIUM LEVEL 8.5 MG/DL (8.8-10.2); CARBON DIOXIDE LEVEL 26 MEQ/L (21-32); CHLORIDE LEVEL 107 MEQ/L (98-107); CREATININE FOR GFR 1.01 MG/DL (0.70-1.30); GLOMERULAR FILTRATION RATE > 60.0 (>42); GLUCOSE, FASTING 100 MG/DL (70-100); POTASSIUM SERUM 4.4 MEQ/L (3.5-5.1); SODIUM LEVEL 137 MEQ/L (136-145); TOTAL PROTEIN 6.5 GM/DL (6.4-8.2)
[2021-07-16] MEDS: THIAMINE 100 MG TAB PO SCH ×2 (08:36→21:13)
[2021-07-16] MEDS: FOLIC ACID 1 MG TAB PO SCH (08:36)
[2021-07-16] MEDS: MULTIVITAMINS/MINERALS THERAP 1 TAB PO SCH (08:37)
[2021-07-16] MEDS: NORCO, ANEXSIA 5/325MG TABLET (HYDROcodone/ACETAMINOPHEN) PO PRN ×2 (09:18→21:13)
[2021-07-16 14:00] VITALS: BP 147/88
[2021-07-16] MEDS: CitaloPRAM (CeleXA) 20 MG TAB PO SCH (21:13)
[2021-07-16] MEDS: ROSUVASTATIN 10 MG TAB (CRESTOR) PO SCH (21:13)
[2021-07-16 21:16] VITALS: BP 211/109
[2021-07-16] MEDS: DOXAZOSIN MESYLATE 1 MG TAB PO SCH (21:16)
[2021-07-16] MEDS: VERAPAMIL 120MG SR TAB PO SCH (21:16)
[2021-07-16 21:29] VITALS: BP 211/109
[2021-07-16] MEDS ORDERED: ACETAMINOPHEN TAB 650MG DOSE (2X325MG) PO PRN (22:00)
[2021-07-17] MEDS: NORCO, ANEXSIA 5/325MG TABLET (HYDROcodone/ACETAMINOPHEN) PO PRN (02:27)
[2021-07-17 02:28] VITALS: BP 160/77
[2021-07-17 03:05] VITALS: BP 211/109
[2021-07-17 06:00] VITALS: BP 197/83
[2021-07-17] MEDS: MULTIVITAMINS/MINERALS THERAP 1 TAB PO SCH (08:13)
[2021-07-17] MEDS: THIAMINE 100 MG TAB PO SCH (08:13)
[2021-07-17] MEDS: FOLIC ACID 1 MG TAB PO SCH (08:13)
[2021-07-17] MEDS ORDERED: lisinopriL 40 MG TAB PO SCH (09:00)
[2021-07-17] MEDS ORDERED: DYAZIDE 37.5/25 CAP (TRIAM/HCTZ) PO SCH (09:00)
[2021-07-17 09:12] LABS: HEMATOCRIT 29.9 % (42.0-52.0); HEMOGLOBIN 9.9 g/dl (13.5-17.5); MEAN CORPUSCULAR HEMOGLOBIN 31.1 pg (27.0-33.0); MEAN CORPUSCULAR HGB CONC 33.1 g/dl (32.0-36.5); PLATELET COUNT, AUTOMATED 197 10^3/uL (150-450); RED BLOOD COUNT 3.18 10^6/uL (4.30-6.10); WHITE BLOOD COUNT 10.3 10^3/uL (4.0-10.0)
[2021-07-17 09:36] LABS: BLOOD UREA NITROGEN 9 MG/DL (7-18); CALCIUM LEVEL 8.6 MG/DL (8.8-10.2); CARBON DIOXIDE LEVEL 28 MEQ/L (21-32); CHLORIDE LEVEL 102 MEQ/L (98-107); CREATININE FOR GFR 0.83 MG/DL (0.70-1.30); GLOMERULAR FILTRATION RATE > 60.0 (>42); GLUCOSE, FASTING 105 MG/DL (70-100); POTASSIUM SERUM 4.4 MEQ/L (3.5-5.1); SODIUM LEVEL 135 MEQ/L (136-145)
[2021-07-17 10:02] VITALS: BP 192/80
[2021-07-17 14:00] VITALS: BP 190/91
[2021-07-17 14:56] VITALS: BP 178/78
== END 2021-07-17 16:41 | disposition home or self-care (01) | DRG 920 ==
LOC: M ED 16:22 → M ED INP 18:24 → M MS5PR 21:20
PROVIDERS: ADMIT Internal Medicine; ATTEND Internal Medicine
PROC: 30233N1 Transfusion of Nonautologous Red Blood Cells into Peripheral Vein, Percutaneous Approach (ICD-10-PCS; principal; 2021-07-14)
DX: N99.820 Postprocedural hemorrhage of a genitourinary system organ or structure following a genitourinary system procedure (principal); N17.9 Acute kidney failure, unspecified; D62 Acute posthemorrhagic anemia; N40.1 Benign prostatic hyperplasia with lower urinary tract symptoms; I10 Essential (primary) hypertension; R33.9 Retention of urine, unspecified; M10.9 Gout, unspecified; K21.9 Gastro-esophageal reflux disease without esophagitis; F32.A Depression, unspecified; E78.5 Hyperlipidemia, unspecified; R31.9 Hematuria, unspecified; F17.200 Nicotine dependence, unspecified, uncomplicated; E87.6 Hypokalemia; C67.2 Malignant neoplasm of lateral wall of bladder; Z90.2 Acquired absence of lung [part of]; Z79.899 Other long term (current) drug therapy

== ENCOUNTER → 2021-07-14 | Outpatient (CLI) | payer OTHER ==
[~2021-07-14] MED LIST changes: +ALLO300T2 PO; +AZO-95TA3 PO; +BACT800T5 PO; +CELE40TA PO; -CIPROFLOXACIN 400 MG in IV 1 EA IV ONE; -LIDOCAINE 1% MDV 20ML VIAL SQ PRN; -LR 1,000 ML IV ONE; +OXYB5TAB10 PO; +PYRI1TAB5 PO
[2021-07-14 11:01] LABS: BASO % 0.2 % (0.0-1.0); EOS # 0.1 10^3/uL (0.0-0.5); EOS % 0.7 % (0.0-3.0); HEMATOCRIT 22.7 % (42.0-52.0); HEMOGLOBIN 7.3 g/dl (13.5-17.5); LYMPH # 1.1 10^3/uL (1.5-5.0); LYMPH % 10.2 % (24.0-44.0); MEAN CORPUSCULAR HEMOGLOBIN 30.9 pg (27.0-33.0); MEAN CORPUSCULAR HGB CONC 32.2 g/dl (32.0-36.5); MEAN CORPUSCULAR VOLUME 96.2 fl (80.0-96.0); MONO % 9.1 % (2.0-8.0); NEUTROPHILS # 8.4 10^3/uL (1.5-8.5); NEUTROPHILS % 78.8 % (36.0-66.0); PLATELET COUNT, AUTOMATED 222 10^3/uL (150-450); RED BLOOD COUNT 2.36 10^6/uL (4.30-6.10); WHITE BLOOD COUNT 10.7 10^3/uL (4.0-10.0)
[2021-07-14 11:30] LABS: ALBUMIN 3.2 GM/DL (3.2-5.2); BILIRUBIN,TOTAL 0.3 MG/DL (0.2-1.0); CALCIUM LEVEL 9.2 MG/DL (8.8-10.2); CREATININE FOR GFR 1.89 MG/DL (0.70-1.30); GLOMERULAR FILTRATION RATE 37.5 (>42); POTASSIUM SERUM 5.1 MEQ/L (3.5-5.1); TOTAL PROTEIN 6.6 GM/DL (6.4-8.2)
== END ==
LOC: M PLALAB 09:43
PROVIDERS: ATTEND Physician Assistant
DX: C67.2 Malignant neoplasm of lateral wall of bladder (principal); Z79.899 Other long term (current) drug therapy

== ENCOUNTER → 2021-09-01 | Outpatient (CLI) | payer OTHER ==
[~2021-09-01] MED LIST changes: +ALLO300T2 PO; +AZO-95TA3 PO; +CELE40TA PO
[2021-09-01 15:13] LABS: BASO # 0.1 10^3/uL (0.0-0.2); BASO % 0.7 % (0.0-1.0); EOS # 0.1 10^3/uL (0.0-0.5); EOS % 1.3 % (0.0-3.0); HEMATOCRIT 32.5 % (42.0-52.0); HEMOGLOBIN 10.4 g/dl (13.5-17.5); LYMPH # 1.3 10^3/uL (1.5-5.0); LYMPH % 14.4 % (24.0-44.0); MEAN CORPUSCULAR HEMOGLOBIN 29.6 pg (27.0-33.0); MEAN CORPUSCULAR VOLUME 92.6 fl (80.0-96.0); MONO # 0.5 10^3/uL (0.0-0.8); MONO % 5.2 % (2.0-8.0); NEUTROPHILS # 6.8 10^3/uL (1.5-8.5); NEUTROPHILS % 77.7 % (36.0-66.0); PLATELET COUNT, AUTOMATED 167 10^3/uL (150-450); RED BLOOD COUNT 3.51 10^6/uL (4.30-6.10); WHITE BLOOD COUNT 8.8 10^3/uL (4.0-10.0)
[2021-09-01 15:13] LABS: APPEARANCE, URINE HAZY (CLEAR); BACTERIA, URINE AUTO 1+ (NEGATIVE); BILIRUBIN, URINE AUTO NEGATIVE (NEGATIVE); BLOOD, URINE BLOOD NEGATIVE (NEGATIVE); COLOR, URINE YELLOW (YELLOW); GLUCOSE, URINE (UA) AUTO NEGATIVE (NEGATIVE); KETONE, URINE AUTO NEGATIVE (NEGATIVE); LEUKOCYTE ESTERASE, URINE AUTO 1+ (NEGATIVE); NITRITE, URINE AUTO NEGATIVE (NEGATIVE); PROTEIN, URINE AUTO 1+ mg/dL (NEGATIVE); RBC, URINE AUTO 0 /HPF (0-3); SPECIFIC GRAVITY URINE AUTO 1.013 (1.002-1.035); SQUAMOUS EPITHELIAL CELL UR AU 0 /HPF (0-6); UROBILINOGEN, URINE AUTO 0.2 mg/dL (0.0-2.0); WBC, URINE AUTO 25 /HPF (0-3)
[2021-09-01 15:24] LABS: ALBUMIN 3.4 GM/DL (3.2-5.2); BILIRUBIN,TOTAL 0.3 MG/DL (0.2-1.0); CALCIUM LEVEL 9.2 MG/DL (8.8-10.2); CREATININE FOR GFR 1.42 MG/DL (0.70-1.30); GLOMERULAR FILTRATION RATE 52.2 (>42); POTASSIUM SERUM 4.9 MEQ/L (3.5-5.1); TOTAL PROTEIN 7.1 GM/DL (6.4-8.2)
== END ==
LOC: M PLALAB 13:41
PROVIDERS: ATTEND Physician Assistant
DX: C67.2 Malignant neoplasm of lateral wall of bladder (principal)

== ENCOUNTER → 2021-09-15 | Outpatient (REF) | payer OTHER ==
[2021-09-15 13:42] LABS: APPEARANCE, URINE HAZY (CLEAR); BACTERIA, URINE AUTO NEGATIVE (NEGATIVE); BILIRUBIN, URINE AUTO NEGATIVE (NEGATIVE); BLOOD, URINE BLOOD NEGATIVE (NEGATIVE); COLOR, URINE YELLOW (YELLOW); GLUCOSE, URINE (UA) AUTO NEGATIVE (NEGATIVE); KETONE, URINE AUTO TRACE mg/dL (NEGATIVE); LEUKOCYTE ESTERASE, URINE AUTO 1+ (NEGATIVE); NITRITE, URINE AUTO NEGATIVE (NEGATIVE); PROTEIN, URINE AUTO 2+ mg/dL (NEGATIVE); RBC, URINE AUTO 1 /HPF (0-3); SPECIFIC GRAVITY URINE AUTO 1.013 (1.002-1.035); SQUAMOUS EPITHELIAL CELL UR AU 0 /HPF (0-6); WBC, URINE AUTO 32 /HPF (0-3)
== END ==
LOC: M SMT 12:44
PROVIDERS: ATTEND Urology
DX: C67.2 Malignant neoplasm of lateral wall of bladder (principal)

== ENCOUNTER → 2021-09-29 | Outpatient (REF) | payer OTHER ==
[2021-09-29 17:57] LABS: APPEARANCE, URINE HAZY (CLEAR); BACTERIA, URINE AUTO NEGATIVE (NEGATIVE); BILIRUBIN, URINE AUTO NEGATIVE (NEGATIVE); BLOOD, URINE BLOOD NEGATIVE (NEGATIVE); COLOR, URINE YELLOW (YELLOW); GLUCOSE, URINE (UA) AUTO NEGATIVE (NEGATIVE); KETONE, URINE AUTO NEGATIVE (NEGATIVE); LEUKOCYTE ESTERASE, URINE AUTO TRACE (NEGATIVE); NITRITE, URINE AUTO NEGATIVE (NEGATIVE); PROTEIN, URINE AUTO 2+ mg/dL (NEGATIVE); RBC, URINE AUTO 1 /HPF (0-3); SPECIFIC GRAVITY URINE AUTO 1.014 (1.002-1.035); SQUAMOUS EPITHELIAL CELL UR AU 0 /HPF (0-6); WBC, URINE AUTO 14 /HPF (0-3)
== END ==
LOC: M SMT 16:50
PROVIDERS: ATTEND Urology
DX: C67.2 Malignant neoplasm of lateral wall of bladder (principal)

== ENCOUNTER → 2021-10-06 | Outpatient (REF) | payer OTHER ==
[2021-10-06 17:39] LABS: APPEARANCE, URINE HAZY (CLEAR); BACTERIA, URINE AUTO NEGATIVE (NEGATIVE); BILIRUBIN, URINE AUTO NEGATIVE (NEGATIVE); BLOOD, URINE BLOOD NEGATIVE (NEGATIVE); COLOR, URINE YELLOW (YELLOW); GLUCOSE, URINE (UA) AUTO NEGATIVE (NEGATIVE); KETONE, URINE AUTO NEGATIVE (NEGATIVE); LEUKOCYTE ESTERASE, URINE AUTO 1+ (NEGATIVE); NITRITE, URINE AUTO NEGATIVE (NEGATIVE); PROTEIN, URINE AUTO 2+ mg/dL (NEGATIVE); RBC, URINE AUTO 1 /HPF (0-3); SPECIFIC GRAVITY URINE AUTO 1.015 (1.002-1.035); SQUAMOUS EPITHELIAL CELL UR AU 0 /HPF (0-6); WBC, URINE AUTO 21 /HPF (0-3)
== END ==
LOC: M SMT 16:38
PROVIDERS: ATTEND Urology
DX: C67.2 Malignant neoplasm of lateral wall of bladder (principal)

== ENCOUNTER → 2021-10-13 | Outpatient (REF) | payer OTHER ==
[2021-10-13 17:34] LABS: APPEARANCE, URINE HAZY (CLEAR); BACTERIA, URINE AUTO NEGATIVE (NEGATIVE); BILIRUBIN, URINE AUTO NEGATIVE (NEGATIVE); BLOOD, URINE BLOOD NEGATIVE (NEGATIVE); COLOR, URINE YELLOW (YELLOW); GLUCOSE, URINE (UA) AUTO NEGATIVE (NEGATIVE); KETONE, URINE AUTO NEGATIVE (NEGATIVE); LEUKOCYTE ESTERASE, URINE AUTO TRACE (NEGATIVE); NITRITE, URINE AUTO NEGATIVE (NEGATIVE); PROTEIN, URINE AUTO 2+ mg/dL (NEGATIVE); RBC, URINE AUTO 1 /HPF (0-3); SPECIFIC GRAVITY URINE AUTO 1.014 (1.002-1.035); SQUAMOUS EPITHELIAL CELL UR AU 0 /HPF (0-6); WBC, URINE AUTO 15 /HPF (0-3)
== END ==
LOC: M SMT 16:48
PROVIDERS: ATTEND Urology
DX: C67.9 Malignant neoplasm of bladder, unspecified (principal)

== ENCOUNTER 2021-10-20 11:14 | Emergency (ER) | payer MEDICARE, OTHER ==
[~2021-10-20] VITALS: Ht 175.3 cm; Wt 81.8 kg
[2021-10-20] MEDS ORDERED: KETOROLAC 60MG 2ML VIAL IM ONE (15:15)
[2021-10-20] MEDS ORDERED: LIDOCAINE 5% (LIDODERM) PATCH TD ONE (15:15)
[2021-10-20] MEDS ORDERED: methocarbamoL 750 MG TAB PO ONE (15:15)
[2021-10-20] MEDS ORDERED: METH-1165 PO (15:57)
[2021-10-20 16:19] VITALS: BP 190/110
[2021-10-21] MEDS ORDERED: **NOTE PATIENT COMMENT** MISC XX ONE (04:00)
== END 2021-10-20 16:39 | disposition home or self-care (01) ==
LOC: M ED 11:14
DX: S39.012A Strain of muscle, fascia and tendon of lower back, initial encounter (principal); X58.XXXA Exposure to other specified factors, initial encounter; Y92.9 Unspecified place or not applicable; Y93.9 Activity, unspecified; Y99.9 Unspecified external cause status; C67.9 Malignant neoplasm of bladder, unspecified; I10 Essential (primary) hypertension; E78.5 Hyperlipidemia, unspecified; J45.909 Unspecified asthma, uncomplicated; K21.9 Gastro-esophageal reflux disease without esophagitis; F10.10 Alcohol abuse, uncomplicated; F32.A Depression, unspecified; F41.9 Anxiety disorder, unspecified; F17.200 Nicotine dependence, unspecified, uncomplicated; Z79.899 Other long term (current) drug therapy
CPT/HCPCS: 81001; 87086; 96372; 99283; J1885

== ENCOUNTER 2021-10-24 13:25 | Inpatient (IN) | payer OTHER ==
[~2021-10-24] VITALS: Ht 175.3 cm; Wt 85.7 kg
[2021-10-24] MEDS ORDERED: LIDOCAINE 5% (LIDODERM) PATCH TD ONE (13:50)
[2021-10-24] MEDS ORDERED: CYCLOBENZAPRINE 5MG TABLET PO ONE (13:50)
[2021-10-24 14:08] LABS: BASO % 0.3 % (0.0-1.0); EOS # 0.1 10^3/uL (0.0-0.5); EOS % 1.1 % (0.0-3.0); HEMATOCRIT 26.8 % (42.0-52.0); HEMOGLOBIN 8.8 g/dl (13.5-17.5); LYMPH # 1.1 10^3/uL (1.5-5.0); MEAN CORPUSCULAR HGB CONC 32.8 g/dl (32.0-36.5); MEAN CORPUSCULAR VOLUME 88.4 fl (80.0-96.0); MONO % 9.2 % (2.0-8.0); NEUTROPHILS # 8.3 10^3/uL (1.5-8.5); NEUTROPHILS % 78.9 % (36.0-66.0); PLATELET COUNT, AUTOMATED 175 10^3/uL (150-450); RED BLOOD COUNT 3.03 10^6/uL (4.30-6.10); WHITE BLOOD COUNT 10.6 10^3/uL (4.0-10.0)
[2021-10-24 14:37] LABS: BLOOD UREA NITROGEN 17 MG/DL (7-18); CALCIUM LEVEL 9.2 MG/DL (8.8-10.2); CARBON DIOXIDE LEVEL 30 MEQ/L (21-32); CHLORIDE LEVEL 96 MEQ/L (98-107); CREATININE FOR GFR 1.19 MG/DL (0.70-1.30); GLOMERULAR FILTRATION RATE > 60.0 (>42); GLUCOSE, FASTING 93 MG/DL (70-100); POTASSIUM SERUM 4.5 MEQ/L (3.5-5.1); SODIUM LEVEL 127 MEQ/L (136-145)
[2021-10-24] MEDS ORDERED: KETOROLAC 30 MG/ML 1ML VIAL IV ONE (14:55)
[2021-10-24] MEDS ORDERED: lisinopriL 40MG TAB PO ONE (15:05)
[2021-10-24 17:44] LABS: OSMOLALITY SERUM 267 MOSM/KG (280-301)
[2021-10-24 17:58] LABS: FERRITIN 32 NG/ML (26-388)
[2021-10-24] MEDS ORDERED: HYDR-3713 PO (18:55)
[2021-10-24] MEDS ORDERED: HOME MED LIST COMPLETE! XX SCH (18:55)
[2021-10-24] MEDS ORDERED: METH-1165 PO (18:55)
[2021-10-24] MEDS: MORPHINE 2 MG/ML 1ML VIAL IV PRN (19:10)
[2021-10-24] MEDS ORDERED: ALBUTEROL 90 MCG/ACT 8GM HFA INHALER INH PRN (19:55)
[2021-10-24] MEDS ORDERED: NORCO, ANEXSIA 5/325MG TABLET (HYDROcodone/ACETAMINOPHEN) PO PRN (19:55)
[2021-10-24] MEDS: lisinopriL 40MG TAB PO SCH (20:49)
[2021-10-24] MEDS: ROSUVASTATIN 10 MG TAB (CRESTOR) PO SCH (20:49)
[2021-10-24] MEDS: CitaloPRAM (CeleXA) 20 MG TAB PO SCH (20:49)
[2021-10-24] MEDS: NORCO, ANEXSIA 5/325MG TABLET (HYDROcodone/ACETAMINOPHEN) PO PRN (20:50)
[2021-10-24] MEDS: DYAZIDE 37.5/25 CAP (TRIAM/HCTZ) PO SCH (21:00)
[2021-10-24] MEDS: **NOTE PATIENT COMMENT** MISC XX SCH (21:00)
[2021-10-24] MEDS: DOXAZOSIN MESYLATE 1 MG TAB PO SCH (21:00)
[2021-10-24] MEDS: cloNIDine 0.2 MG TAB PO SCH (21:45)
[2021-10-24 22:15] VITALS: BP_SYST 184; BP_SYST 211; BP_DIAS 103; BP_DIAS 93
[2021-10-25] VITALS (9 sets, daily range): BP systolic 120–215; BP diastolic 58–105
[2021-10-25] MEDS: MORPHINE 2 MG/ML 1ML VIAL IV PRN ×3 (00:39→20:15)
[2021-10-25] MEDS: NORCO, ANEXSIA 5/325MG TABLET (HYDROcodone/ACETAMINOPHEN) PO PRN ×4 (02:38→23:17)
[2021-10-25 06:12] LABS: HEMATOCRIT 28.1 % (42.0-52.0); HEMOGLOBIN 9.2 g/dl (13.5-17.5); MEAN CORPUSCULAR HEMOGLOBIN 29.2 pg (27.0-33.0); MEAN CORPUSCULAR HGB CONC 32.7 g/dl (32.0-36.5); MEAN CORPUSCULAR VOLUME 89.2 fl (80.0-96.0); PLATELET COUNT, AUTOMATED 216 10^3/uL (150-450); RED BLOOD COUNT 3.15 10^6/uL (4.30-6.10); WHITE BLOOD COUNT 12.9 10^3/uL (4.0-10.0)
[2021-10-25 06:43] LABS: BLOOD UREA NITROGEN 18 MG/DL (7-18); CALCIUM LEVEL 9.1 MG/DL (8.8-10.2); CARBON DIOXIDE LEVEL 29 MEQ/L (21-32); CHLORIDE LEVEL 93 MEQ/L (98-107); CREATININE FOR GFR 1.17 MG/DL (0.70-1.30); GLOMERULAR FILTRATION RATE > 60.0 (>42); GLUCOSE, FASTING 86 MG/DL (70-100); POTASSIUM SERUM 4.6 MEQ/L (3.5-5.1); SODIUM LEVEL 127 MEQ/L (136-145)
[2021-10-25] MEDS: allopurinoL 300 MG TAB PO SCH (09:08)
[2021-10-25] MEDS: VERAPAMIL 120MG SR TAB PO SCH (09:08)
[2021-10-25] MEDS: lisinopriL 40MG TAB PO SCH ×2 (09:08→20:15)
[2021-10-25] MEDS: cloNIDine 0.2 MG TAB PO SCH ×2 (09:08→20:15)
[2021-10-25] MEDS: CitaloPRAM (CeleXA) 20 MG TAB PO SCH (20:15)
[2021-10-25] MEDS: DOXAZOSIN MESYLATE 1 MG TAB PO SCH (20:16)
[2021-10-25] MEDS: ROSUVASTATIN 10 MG TAB (CRESTOR) PO SCH (20:16)
[2021-10-25] MEDS: DYAZIDE 37.5/25 CAP (TRIAM/HCTZ) PO SCH (20:16)
[2021-10-25] MEDS: **NOTE PATIENT COMMENT** MISC XX SCH (20:16)
[2021-10-26] VITALS (11 sets, daily range): BP systolic 133–220; BP diastolic 60–110
[2021-10-26] MEDS ORDERED: **hydrALAZINE** 50 MG TAB PO ONE ×2 (00:40→21:55)
[2021-10-26] MEDS ORDERED: MORPHINE 2 MG/ML 1ML VIAL IV ONE (00:40)
[2021-10-26] MEDS: NORCO, ANEXSIA 5/325MG TABLET (HYDROcodone/ACETAMINOPHEN) PO PRN ×4 (05:56→23:37)
[2021-10-26 06:44] LABS: HEMATOCRIT 28.8 % (42.0-52.0); HEMOGLOBIN 9.6 g/dl (13.5-17.5); MEAN CORPUSCULAR HEMOGLOBIN 28.8 pg (27.0-33.0); MEAN CORPUSCULAR HGB CONC 33.3 g/dl (32.0-36.5); MEAN CORPUSCULAR VOLUME 86.5 fl (80.0-96.0); PLATELET COUNT, AUTOMATED 218 10^3/uL (150-450); RED BLOOD COUNT 3.33 10^6/uL (4.30-6.10)
[2021-10-26 07:16] LABS: BLOOD UREA NITROGEN 20 MG/DL (7-18); CALCIUM LEVEL 9.8 MG/DL (8.8-10.2); CARBON DIOXIDE LEVEL 28 MEQ/L (21-32); CHLORIDE LEVEL 89 MEQ/L (98-107); CREATININE FOR GFR 1.05 MG/DL (0.70-1.30); GLOMERULAR FILTRATION RATE > 60.0 (>42); GLUCOSE, FASTING 103 MG/DL (70-100); POTASSIUM SERUM 4.8 MEQ/L (3.5-5.1); SODIUM LEVEL 126 MEQ/L (136-145)
[2021-10-26] MEDS: cloNIDine 0.2 MG TAB PO SCH ×2 (08:36→20:52)
[2021-10-26] MEDS: allopurinoL 300 MG TAB PO SCH (08:36)
[2021-10-26] MEDS: lisinopriL 40MG TAB PO SCH ×2 (08:36→18:35)
[2021-10-26] MEDS: VERAPAMIL 120MG SR TAB PO SCH (08:37)
[2021-10-26 12:37] LABS: PERCENT SATURATION 5.8 % (19.7-50.0)
[2021-10-26] MEDS: methocarbamoL 750 MG TAB PO PRN (16:51)
[2021-10-26] MEDS: ROSUVASTATIN 10 MG TAB (CRESTOR) PO SCH (20:51)
[2021-10-26] MEDS: DOXAZOSIN MESYLATE 1 MG TAB PO SCH (20:52)
[2021-10-26] MEDS: CitaloPRAM (CeleXA) 20 MG TAB PO SCH (20:55)
[2021-10-26] MEDS: **NOTE PATIENT COMMENT** MISC XX SCH (20:56)
[2021-10-26] MEDS: ACETAMINOPHEN TAB 650MG DOSE (2X325MG) PO PRN (21:38)
[2021-10-27] VITALS: BP_SYST 130; BP_SYST 135; BP_DIAS 65; BP_DIAS 70
[2021-10-27 04:00] VITALS: BP 170/90
[2021-10-27] MEDS: **hydrALAZINE** 50 MG TAB PO PRN ×2 (04:20→16:24)
[2021-10-27] MEDS: methocarbamoL 750 MG TAB PO PRN (05:19)
[2021-10-27 06:00] LABS: HEMATOCRIT 30.6 % (42.0-52.0); MEAN CORPUSCULAR HEMOGLOBIN 28.2 pg (27.0-33.0); MEAN CORPUSCULAR HGB CONC 32.7 g/dl (32.0-36.5); MEAN CORPUSCULAR VOLUME 86.2 fl (80.0-96.0); PLATELET COUNT, AUTOMATED 246 10^3/uL (150-450); RED BLOOD COUNT 3.55 10^6/uL (4.30-6.10); WHITE BLOOD COUNT 13.1 10^3/uL (4.0-10.0)
[2021-10-27 06:29] LABS: BLOOD UREA NITROGEN 21 MG/DL (7-18); CALCIUM LEVEL 9.9 MG/DL (8.8-10.2); CARBON DIOXIDE LEVEL 26 MEQ/L (21-32); CHLORIDE LEVEL 87 MEQ/L (98-107); GLOMERULAR FILTRATION RATE > 60.0 (>42); GLUCOSE, FASTING 98 MG/DL (70-100); POTASSIUM SERUM 3.9 MEQ/L (3.5-5.1); SODIUM LEVEL 125 MEQ/L (136-145)
[2021-10-27] MEDS: NORCO, ANEXSIA 5/325MG TABLET (HYDROcodone/ACETAMINOPHEN) PO PRN ×2 (06:50→15:04)
[2021-10-27 08:00] VITALS: BP 150/73
[2021-10-27] MEDS: lisinopriL 40MG TAB PO SCH ×2 (08:45→20:37)
[2021-10-27] MEDS: cloNIDine 0.2 MG TAB PO SCH ×2 (08:45→20:38)
[2021-10-27] MEDS: allopurinoL 300 MG TAB PO SCH (08:45)
[2021-10-27] MEDS: VERAPAMIL 120MG SR TAB PO SCH (08:45)
[2021-10-27 10:15] LABS: ERYTHROCYTE SEDIMENTATION RATE 92 mm/hr (0-20)
[2021-10-27 10:57] LABS: TOTAL 25(OH) VITAMIN D 66.7 NG/ML (30.0-100.0)
[2021-10-27] MEDS ORDERED: FERRIC CARBOXYMALTOSE INJ 750 MG, VIAL MATE ADAPTER 1 EACH in NS 250 ML IV ONE (11:00)
[2021-10-27 12:00] VITALS: BP 154/71
[2021-10-27 12:16] LABS: OSMOLALITY URINE 266 MOSM/KG (50-1400)
[2021-10-27 12:31] LABS: SODIUM,RANDOM URINE 19 MEQ/L
[2021-10-27 16:00] VITALS: BP 182/79
[2021-10-27] MEDS: NS 1,000 ML IV SCH (16:55)
[2021-10-27] MEDS: MORPHINE 2 MG/ML 1ML VIAL IV PRN (19:27)
[2021-10-27 20:00] VITALS: BP 158/74
[2021-10-27] MEDS: CitaloPRAM (CeleXA) 20 MG TAB PO SCH (20:37)
[2021-10-27] MEDS: DOXAZOSIN MESYLATE 1 MG TAB PO SCH (20:38)
[2021-10-27] MEDS: ROSUVASTATIN 10 MG TAB (CRESTOR) PO SCH (20:39)
[2021-10-27] MEDS: **NOTE PATIENT COMMENT** MISC XX SCH (21:00)
[2021-10-28] MEDS: NORCO, ANEXSIA 5/325MG TABLET (HYDROcodone/ACETAMINOPHEN) PO PRN ×4 (00:05→18:45)
[2021-10-28] MEDS ORDERED: VANCOMYCIN HCL 1,000 MG, VIAL MATE ADAPTER 1 EACH in NS 250 ML IV ONE (03:00)
[2021-10-28] MEDS: methocarbamoL 750 MG TAB PO PRN (03:08)
[2021-10-28] MEDS: NS 1,000 ML IV SCH ×2 (03:36→18:45)
[2021-10-28 04:00] VITALS: BP 194/90
[2021-10-28] MEDS ORDERED: VANCOMYCIN HCL 750 MG, VIAL MATE ADAPTER 1 EACH in NS 250 ML IV ONE (04:00)
[2021-10-28] MEDS: **hydrALAZINE** 50 MG TAB PO PRN ×3 (04:11→23:26)
[2021-10-28 05:10] VITALS: BP 160/78
[2021-10-28 05:37] LABS: HEMATOCRIT 27.9 % (42.0-52.0); HEMOGLOBIN 9.3 g/dl (13.5-17.5); MEAN CORPUSCULAR HEMOGLOBIN 28.3 pg (27.0-33.0); MEAN CORPUSCULAR HGB CONC 33.3 g/dl (32.0-36.5); MEAN CORPUSCULAR VOLUME 84.8 fl (80.0-96.0); PLATELET COUNT, AUTOMATED 221 10^3/uL (150-450); RED BLOOD COUNT 3.29 10^6/uL (4.30-6.10); WHITE BLOOD COUNT 13.3 10^3/uL (4.0-10.0)
[2021-10-28 05:56] LABS: BLOOD UREA NITROGEN 21 MG/DL (7-18); CALCIUM LEVEL 9.5 MG/DL (8.8-10.2); CARBON DIOXIDE LEVEL 29 MEQ/L (21-32); CHLORIDE LEVEL 92 MEQ/L (98-107); CREATININE FOR GFR 1.01 MG/DL (0.70-1.30); GLOMERULAR FILTRATION RATE > 60.0 (>42); GLUCOSE, FASTING 106 MG/DL (70-100); POTASSIUM SERUM 4.1 MEQ/L (3.5-5.1); SODIUM LEVEL 126 MEQ/L (136-145)
[2021-10-28 08:16] VITALS: BP 160/75
[2021-10-28] MEDS: lisinopriL 40MG TAB PO SCH ×2 (08:40→20:38)
[2021-10-28] MEDS: allopurinoL 300 MG TAB PO SCH (08:40)
[2021-10-28] MEDS: VERAPAMIL 120MG SR TAB PO SCH (08:40)
[2021-10-28] MEDS: cloNIDine 0.2 MG TAB PO SCH ×2 (08:41→20:39)
[2021-10-28 09:56] LABS: SODIUM,RANDOM URINE 16 MEQ/L
[2021-10-28] MEDS: ACETAMINOPHEN TAB 650MG DOSE (2X325MG) PO PRN ×2 (10:16→17:02)
[2021-10-28 10:44] LABS: OSMOLALITY URINE 208 MOSM/KG (50-1400)
[2021-10-28] MEDS ORDERED: FUROSEMIDE 20MG/2ML VIAL (J1940) IV ONE (11:05)
[2021-10-28] MEDS ORDERED: MIRALAX *UNIT DOSE* 17GM PACKET PO PRN (11:25)
[2021-10-28] MEDS ORDERED: LACTULOSE 20 GM/30 ML SYRUP UD PO ONE (11:25)
[2021-10-28] MEDS: DOCUSATE SODIUM 100MG CAPSULE PO SCH ×2 (11:58→20:37)
[2021-10-28] MEDS: SENNA 8.6 MG TAB (SENOKOT) PO SCH ×2 (11:58→20:38)
[2021-10-28] MEDS: VANCOMYCIN HCL 1,000 MG, VIAL MATE ADAPTER 1 EACH in NS 250 ML IV SCH (16:04)
[2021-10-28 16:10] VITALS: BP 185/88
[2021-10-28 18:02] VITALS: BP 150/70
[2021-10-28 20:00] VITALS: BP 188/92
[2021-10-28] MEDS: ROSUVASTATIN 10 MG TAB (CRESTOR) PO SCH (20:37)
[2021-10-28] MEDS: CitaloPRAM (CeleXA) 20 MG TAB PO SCH (20:39)
[2021-10-28] MEDS: DOXAZOSIN MESYLATE 1 MG TAB PO SCH (20:39)
[2021-10-28] MEDS: **NOTE PATIENT COMMENT** MISC XX SCH (20:40)
[2021-10-28] MEDS ORDERED: LIDOCAINE 5% (LIDODERM) PATCH TD SCH (21:00)
[2021-10-29] VITALS (11 sets, daily range): BP systolic 152–188; BP diastolic 63–90
[2021-10-29] MEDS: NORCO, ANEXSIA 5/325MG TABLET (HYDROcodone/ACETAMINOPHEN) PO PRN ×3 (01:00→18:44)
[2021-10-29] MEDS: VANCOMYCIN HCL 1,000 MG, VIAL MATE ADAPTER 1 EACH in NS 250 ML IV SCH ×2 (02:15→15:33)
[2021-10-29] MEDS: MORPHINE 2 MG/ML 1ML VIAL IV PRN (03:58)
[2021-10-29] MEDS ORDERED: MORPHINE 2 MG/ML 1ML VIAL IV ONE ×2 (04:30→05:30)
[2021-10-29 05:45] LABS: HEMATOCRIT 27.3 % (42.0-52.0); HEMOGLOBIN 8.8 g/dl (13.5-17.5); MEAN CORPUSCULAR HEMOGLOBIN 27.8 pg (27.0-33.0); MEAN CORPUSCULAR HGB CONC 32.2 g/dl (32.0-36.5); MEAN CORPUSCULAR VOLUME 86.1 fl (80.0-96.0); PLATELET COUNT, AUTOMATED 227 10^3/uL (150-450); RED BLOOD COUNT 3.17 10^6/uL (4.30-6.10); WHITE BLOOD COUNT 12.8 10^3/uL (4.0-10.0)
[2021-10-29 06:10] LABS: BLOOD UREA NITROGEN 16 MG/DL (7-18); CALCIUM LEVEL 8.9 MG/DL (8.8-10.2); CARBON DIOXIDE LEVEL 26 MEQ/L (21-32); CHLORIDE LEVEL 94 MEQ/L (98-107); CREATININE FOR GFR 0.89 MG/DL (0.70-1.30); GLOMERULAR FILTRATION RATE > 60.0 (>42); GLUCOSE, FASTING 103 MG/DL (70-100); POTASSIUM SERUM 3.7 MEQ/L (3.5-5.1); SODIUM LEVEL 127 MEQ/L (136-145)
[2021-10-29] MEDS: **hydrALAZINE** 50 MG TAB PO PRN (06:23)
[2021-10-29] MEDS ORDERED: FUROSEMIDE 20MG/2ML VIAL (J1940) IV ONE (08:15)
[2021-10-29] MEDS: DOCUSATE SODIUM 100MG CAPSULE PO SCH (08:30)
[2021-10-29] MEDS: allopurinoL 300 MG TAB PO SCH (08:30)
[2021-10-29] MEDS: VERAPAMIL 120MG SR TAB PO SCH (08:31)
[2021-10-29] MEDS: cloNIDine 0.2 MG TAB PO SCH (08:31)
[2021-10-29] MEDS: lisinopriL 40MG TAB PO SCH (08:31)
[2021-10-29] MEDS ORDERED: **NOTE PATIENT COMMENT** MISC XX SCH (09:00)
[2021-10-29] MEDS ORDERED: ENOXAPARIN 40MG/0.4ML SYRINGE (J1650 PER 10MG) SC SCH (09:00)
[2021-10-29 09:03] LABS: ALBUMIN 2.6 GM/DL (3.2-5.2); ALT/SGPT 40 U/L (12-78); BILIRUBIN,TOTAL 0.5 MG/DL (0.2-1.0); BLOOD UREA NITROGEN 15 MG/DL (7-18); CALCIUM LEVEL 9.2 MG/DL (8.8-10.2); CARBON DIOXIDE LEVEL 25 MEQ/L (21-32); CHLORIDE LEVEL 94 MEQ/L (98-107); CREATININE FOR GFR 0.83 MG/DL (0.70-1.30); GLOMERULAR FILTRATION RATE > 60.0 (>42); GLUCOSE, FASTING 93 MG/DL (70-100); POTASSIUM SERUM 3.7 MEQ/L (3.5-5.1); SODIUM LEVEL 128 MEQ/L (136-145); TOTAL PROTEIN 6.6 GM/DL (6.4-8.2)
[2021-10-29] MEDS ORDERED: PROHANCE 279.3MG/ML 15ML VIAL As Ordered ONE (09:56)
[2021-10-29] MEDS ORDERED: PROHANCE 279.3MG/ML 5ML VIAL As Ordered ONE (09:57)
[2021-10-29] MEDS: SODIUM CHLORIDE 1 GM TAB PO SCH ×2 (11:44→15:35)
[2021-10-29 15:48] LABS: INR 1.21; PROTHROMBIN TIME 15.7 SECONDS (12.7-14.5)
[2021-10-29] MEDS ORDERED: cefTRIAXone SOD 2 GM in D5W MINI-BAG PLUS 50 ML IV SCH (18:00)
[2021-10-29] MEDS ORDERED: VANC1PLA6 IV (18:35)
[2021-10-29] MEDS ORDERED: MORP2INJ4 IV (18:35)
[2021-10-29] MEDS ORDERED: SODI1TAB6 PO (18:35)
[2021-10-29] MEDS ORDERED: LIDO5TD TD (18:35)
[2021-10-29] MEDS ORDERED: ACET1TAB55 PO (18:35)
[2021-10-29] MEDS ORDERED: SENN18TA PO (18:35)
[2021-10-29] MEDS ORDERED: MIRA1POW3 PO (18:35)
[2021-10-29] MEDS ORDERED: CEFT2INJ4 IV (18:35)
[2021-10-29] MEDS ORDERED: CLON0.2T PO (18:35)
[2021-10-29] MEDS ORDERED: HYDR50TA PO (18:35)
[2021-10-29] MEDS ORDERED: LOVE1INJ SC (18:35)
[2021-10-29] MEDS ORDERED: COLA100C5 PO (18:35)
== END 2021-10-29 19:26 | disposition short-term general hospital (02) | DRG 95 ==
LOC: M ED 13:25 → M ED INP 17:23 → M PCU 22:31
PROVIDERS: ADMIT Internal Medicine; ATTEND Internal Medicine
DX: G06.2 Extradural and subdural abscess, unspecified (principal); E87.1 Hypo-osmolality and hyponatremia; R78.81 Bacteremia; N39.0 Urinary tract infection, site not specified; I16.0 Hypertensive urgency; I12.9 Hypertensive chronic kidney disease with stage 1 through stage 4 chronic kidney disease, or unspecified chronic kidney disease; K21.9 Gastro-esophageal reflux disease without esophagitis; E78.5 Hyperlipidemia, unspecified; C67.9 Malignant neoplasm of bladder, unspecified; D50.9 Iron deficiency anemia, unspecified; M46.46 Discitis, unspecified, lumbar region; M10.9 Gout, unspecified; F32.A Depression, unspecified; N40.0 Benign prostatic hyperplasia without lower urinary tract symptoms; F17.200 Nicotine dependence, unspecified, uncomplicated; Z79.899 Other long term (current) drug therapy; N18.30 Chronic kidney disease, stage 3 unspecified

== ENCOUNTER → 2021-11-17 | Outpatient (REF) | payer OTHER ==
[~2021-11-17] MED LIST changes: +ACET1TAB55 PO; +CEFT2INJ4 IV; +CLON0.2T PO; +COLA100C5 PO; +HYDR50TA PO; +LIDO5TD TD; +LOVE1INJ SC; +MIRA1POW3 PO; +MORP2INJ4 IV; +SENN18TA PO; +SODI1TAB6 PO; -TRIA37.53 PO; +TRIA37.577 PO; +VANC1PLA6 IV
[2021-11-17 16:29] LABS: BASO # 0.1 10^3/uL (0.0-0.2); BASO % 0.6 % (0.0-1.0); EOS # 0.1 10^3/uL (0.0-0.5); EOS % 0.8 % (0.0-3.0); HEMOGLOBIN 9.4 g/dl (13.5-17.5); LYMPH # 0.8 10^3/uL (1.5-5.0); LYMPH % 9.5 % (24.0-44.0); MEAN CORPUSCULAR HEMOGLOBIN 29.5 pg (27.0-33.0); MEAN CORPUSCULAR HGB CONC 31.3 g/dl (32.0-36.5); MONO # 0.4 10^3/uL (0.0-0.8); MONO % 4.9 % (2.0-8.0); NEUTROPHILS # 7.2 10^3/uL (1.5-8.5); NEUTROPHILS % 83.6 % (36.0-66.0); RED BLOOD COUNT 3.19 10^6/uL (4.30-6.10); WHITE BLOOD COUNT 8.6 10^3/uL (4.0-10.0)
[2021-11-17 16:48] LABS: ALBUMIN 2.7 GM/DL (3.2-5.2); BILIRUBIN,TOTAL 0.4 MG/DL (0.2-1.0); C REACTIVE PROTEIN QUANTITATIV 5.02 MG/DL (0.00-0.30); CALCIUM LEVEL 9.4 MG/DL (8.8-10.2); CREATININE FOR GFR 1.58 MG/DL (0.70-1.30); GLOMERULAR FILTRATION RATE 46.1 (>42); POTASSIUM SERUM 4.2 MEQ/L (3.5-5.1); TOTAL PROTEIN 6.8 GM/DL (6.4-8.2)
[2021-11-17 17:53] LABS: ERYTHROCYTE SEDIMENTATION RATE 73 mm/hr (0-20)
== END ==
LOC: M LAB REF 15:36
PROVIDERS: ATTEND Internal Medicine Infectious Disease
DX: G06.1 Intraspinal abscess and granuloma (principal)

== ENCOUNTER 2021-11-24 12:50 | Emergency (ER) | payer OTHER ==
[~2021-11-24] VITALS: Ht 175.3 cm; Wt 86.0 kg
[2021-11-24] MEDS ORDERED: SODIUM CHLORIDE 0.9% INJ 10 ML SYR IV PRN (14:10)
[2021-11-24 14:37] LABS: BASO % 0.3 % (0.0-1.0); EOS # 0.3 10^3/uL (0.0-0.5); EOS % 2.5 % (0.0-3.0); HEMATOCRIT 28.3 % (42.0-52.0); HEMOGLOBIN 8.7 g/dl (13.5-17.5); LYMPH # 0.6 10^3/uL (1.5-5.0); MEAN CORPUSCULAR HEMOGLOBIN 28.1 pg (27.0-33.0); MEAN CORPUSCULAR HGB CONC 30.7 g/dl (32.0-36.5); MEAN CORPUSCULAR VOLUME 91.3 fl (80.0-96.0); MONO # 0.4 10^3/uL (0.0-0.8); MONO % 3.1 % (2.0-8.0); NEUTROPHILS # 10.8 10^3/uL (1.5-8.5); NEUTROPHILS % 88.4 % (36.0-66.0); PLATELET COUNT, AUTOMATED 234 10^3/uL (150-450); WHITE BLOOD COUNT 12.2 10^3/uL (4.0-10.0)
[2021-11-24 15:02] LABS: ALBUMIN 2.1 GM/DL (3.2-5.2); BILIRUBIN,DIRECT 0.4 MG/DL (0.0-0.2); BILIRUBIN,TOTAL 0.5 MG/DL (0.2-1.0); C REACTIVE PROTEIN QUANTITATIV 15.8 MG/DL (0.00-0.30); CREATININE FOR GFR 1.46 MG/DL (0.70-1.30); GLOMERULAR FILTRATION RATE 50.5 (>42); POTASSIUM SERUM 4.8 MEQ/L (3.5-5.1); TOTAL PROTEIN 6.2 GM/DL (6.4-8.2)
[2021-11-24 15:03] LABS: ERYTHROCYTE SEDIMENTATION RATE 126 mm/hr (0-20)
[2021-11-24 15:13] LABS: RSV AMPLIFICATION NEGATIVE (NEGATIVE)
[2021-11-24] MEDS ORDERED: NS 1,000 ML IV ONE (18:35)
[2021-11-24] MEDS ORDERED: MORPHINE 4 MG/ML 1ML VIAL/SYRINGE IV PRN (21:10)
[2021-11-24] MEDS ORDERED: ONDANSETRON 4MG/2ML VIAL IV ONE (21:10)
[2021-11-25 01:09] VITALS: BP 160/70
== END 2021-11-25 01:12 | disposition short-term general hospital (02) ==
LOC: M ED 12:50 → EDBD 12:50 → M ED 11-25 01:12
DX: M46.46 Discitis, unspecified, lumbar region (principal); M46.26 Osteomyelitis of vertebra, lumbar region; K74.60 Unspecified cirrhosis of liver; N28.1 Cyst of kidney, acquired; N41.1 Chronic prostatitis; M43.06 Spondylolysis, lumbar region; I25.10 Atherosclerotic heart disease of native coronary artery without angina pectoris; R91.8 Other nonspecific abnormal finding of lung field; I10 Essential (primary) hypertension; E78.5 Hyperlipidemia, unspecified; N40.0 Benign prostatic hyperplasia without lower urinary tract symptoms; F10.120 Alcohol abuse with intoxication, uncomplicated; C67.9 Malignant neoplasm of bladder, unspecified; F17.200 Nicotine dependence, unspecified, uncomplicated; Z79.899 Other long term (current) drug therapy
CPT/HCPCS: 72148; 74176; 80048; 80076; 82140; 85025; 85652; 86140; 87631; 96361; 96374; 96375; 99285; J1642; J2270; J2405